=== PATIENT | female | born 1965 | race Caucasian/White ===

== ENCOUNTER 2017-06-30 10:20 | Emergency (ER) | payer SELFPAY ==
[~2017-06-30] VITALS: Ht 157.5 cm; Wt 62.0 kg
[~2017-06-30 10:20] MED LIST: LORTAB5 OR; MS CONTIN15 MG OR; NAPROSYN500 MG OR; NO CURRENT MEDS; NO HOME MEDS; PERCOCET 5/325M1 TAB OR; ULTRAM50 MG OR; ZOFRAN ODT4 MG OR
[2017-06-30 12:07] LABS: ALBUMIN 4.8 g/dL (3.2-5.0); ALKALINE PHOSPHATASE 125 u/l (38-126); ANION GAP 17 (6-22 (CALC)); BUN 15 mg/dL (7-17); BUN/CREATININE RATIO 26 (12-20 (CALC)); CARBON DIOXIDE 26 mmol/l (22-30); CHLORIDE 104 mmol/l (95-108); CREATININE 0.6 mg/dL (0.5-1.0); GFR > 60 ML/MIN (>=60 (CALC)); GFR FOR AFR.AMER. > 60 ML/MIN (>=60 (CALC)); LIPASE 70 u/l (23-300); POTASSIUM 4.9 mmol/l (3.5-5.1); SGOT/AST 44 u/l (14-36); SGPT/ALT 47 u/l (9-52); SODIUM 142 mmol/l (137-146); TOTAL PROTEIN 8.6 g/dL (6.3-8.2)
[2017-06-30 12:19] LABS: MYOGLOBIN 17 ng/mL (0 - 62)
[2017-06-30] MEDS ORDERED: PREDNISONE50 MG PO ×2 (12:36→12:41)
[2017-06-30] MEDS ORDERED: TESSALON PER100 MG PO ×2 (12:36→12:41)
[2017-06-30] MEDS ORDERED: ZITHROMAX250 MG PO ×2 (12:36→12:41)
[2017-06-30 12:45] VITALS: BP 142/88
== END 2017-06-30 12:45 | disposition home or self-care (01) | DRG 203 ==
LOC: ED 10:20
PROVIDERS: Emergency Medicine
DX: J40 Bronchitis, not specified as acute or chronic (principal); F17.210 Nicotine dependence, cigarettes, uncomplicated; R05 Cough; R11.2 Nausea with vomiting, unspecified

== ENCOUNTER 2017-07-06 19:42 | Emergency (ER) | payer SELFPAY ==
[~2017-07-06] VITALS: Ht 157.5 cm; Wt 59.0 kg
[~2017-07-06 19:42] MED LIST changes: +PREDNISONE50 MG PO; +TESSALON PER100 MG PO; +ZITHROMAX250 MG PO
[2017-07-06 20:54] VITALS: BP 122/78
== END 2017-07-06 20:54 | disposition home or self-care (01) | DRG 605 ==
LOC: ED 19:42
PROC: 0HQKXZZ Repair Right Lower Leg Skin, External Approach (ICD-10-PCS; principal; 2017-07-06)
DX: S81.811A Laceration without foreign body, right lower leg, initial encounter (principal); F17.210 Nicotine dependence, cigarettes, uncomplicated; X99.1XXA Assault by knife, initial encounter

== ENCOUNTER 2017-08-24 05:28 | Observation (INO) | payer SELFPAY ==
[~2017-08-24] VITALS: Ht 157.5 cm; Wt 59.6 kg
[2017-08-24] VITALS (7 sets, daily range): BP systolic 134–166; BP diastolic 70–101
--- NOTE | 2017-08-24 05:43 | NUR ---
BROUGHT BY W/C TO ROOM 10. GENERALIZED TREMORS.
--- NOTE | 2017-08-24 05:44 | NUR ---
PT. TO ROOM 10 WITH AND C/O NOT HAVING ENOUGH TO DRINK TODAY AND PT. STATING, " I FEEL BUGS CRAWLING ALL OVER ME." " JUST PLEASE GIVE ME A DRINK." MD AT BEDSIDE.
--- NOTE | 2017-08-24 06:37 | NUR ---
IV FLUIDS AND IV ATIVAN GIVEN PER MD ORDER.
[2017-08-24 06:38] LABS: URINE BILIRUBIN - DIPSTICK NEGATIVE (NEGATIVE); URINE BLOOD DIPSTICK TRACE-INTACT (NEGATIVE); URINE COLOR YELLOW; URINE GLUCOSE - DIPSTICK NEGATIVE (NEGATIVE); URINE KETONE NEGATIVE (NEGATIVE); URINE LEUK ESTERASE NEGATIVE (NEGATIVE); URINE NITRITE - DIPSTICK NEGATIVE (Negative); URINE PROTEIN - DIPSTICK NEGATIVE (NEG-TRACE); URINE SPECIFIC GRAVITY 1.015; URINE UROBILINOGEN - DIPSTICK 0.2 E.U./dL (0.2)
[2017-08-24 06:39] LABS: HEMATOCRIT 44.6 % (37.0-47.0); IMMATURE GRANULOCYTES 0.2 % (0.0-1.0); MEAN CELL VOLUME 101.6 fL CALC (80.0-100.0); MEAN CORPUSCULAR HGB 34.2 pG CALC (26.0-32.0); MEAN CORPUSCULAR HGB CONC 33.6 g/L CALC (32.0-36.0); NEUT# 5.31 thou/uL (2.00-7.15); RED BLOOD COUNT 4.39 mill/uL (4.20-5.60); RED CELL DISTRI WIDTH 13.4 % (11.5-15.5); URINE CLARITY CLEAR
[2017-08-24 06:43] LABS: BARBITURATES NEGATIVE (NEGATIVE); COCAINE NEGATIVE (NEGATIVE); METHADONE NEGATIVE (NEGATIVE); OXCYCODONE NEGATIVE (NEGATIVE); TETRAHYDROCANNABIONOL NEGATIVE (NEGATIVE); TRICYLIC ANTIDEPRESSANTS NEGATIVE (NEGATIVE)
--- NOTE | 2017-08-24 06:49 | NUR ---
REPORT GIVEN TO STANISLAW FRANCIS/
[2017-08-24 06:54] LABS: ALBUMIN 4.6 g/dL (3.2-5.0); ALKALINE PHOSPHATASE 135 u/l (38-126); ANION GAP 24 (6-22 (CALC)); BILIRUBIN, TOTAL 0.5 mg/dL (0.0-1.4); BUN 16 mg/dL (7-17); BUN/CREATININE RATIO 25 (12-20 (CALC)); CARBON DIOXIDE 24 mmol/l (22-30); CHLORIDE 107 mmol/l (95-108); CREATININE 0.7 mg/dL (0.5-1.0); ETHYL ALCOHOL 247 mg/dl (0-30); GFR > 60 ML/MIN (>=60 (CALC)); GFR FOR AFR.AMER. > 60 ML/MIN (>=60 (CALC)); LIPASE 296 u/l (23-300); POTASSIUM 4.2 mmol/l (3.5-5.1); PROTHROMBIN TIME 10.6 SECONDS (9.0-12.5); SGPT/ALT 70 u/l (9-52)
[2017-08-24 06:55] LABS: SGOT/AST 90 u/l (14-36); SODIUM 151 mmol/l (137-146)
[2017-08-24 07:05] LABS: MYOGLOBIN 32 ng/mL (0 - 62)
--- NOTE | 2017-08-24 07:07 | NUR ---
PATIENT RETURNS FROM RADIOLOGY IN STABLE CONDITION, ALERT AND ORIENTED. RESPIRATIONS ARE EVEN AND UNLABORED. IV FLUIDS INFUSING WELL. REQUESTING PO FLUIDS. INFORMED OF NPO STATUS UNTIL CT SCAN RESULTS RETURN. VERBAL UNDERSTANDING. AT BEDSIDE, CALL LIGHT GIVEN. INFORMED TO CALL FOR ASSISTANCE, VERBAL UNDERSTANDING. WILL CONTINUE TO MONITOR.
--- NOTE | 2017-08-24 08:05 | NUR ---
PATIENT RESTING ON STRETCHER WITH NO SIGNS OF DISTRESS. UPDATED ON PLAN OF CARE VERBAL UNDERSTANDING, WILL CONTINUE TO MONITOR.
--- NOTE | 2017-08-24 08:21 | NUR ---
CALL PLACED TO [facility], SPOKE TO JOHANNY. STATES NURSE IN A ROOM, WILL CALL BACK.
--- NOTE | 2017-08-24 09:08 | NUR ---
PATIENT TRANSPORTED TO [facility] WITH TELE VIA STRETCHER. BEDSIDE REPORT GIVEN TO PENNY CYR. CARE RELINQUISHED.
--- NOTE | 2017-08-24 09:09 | NUR ---
PT CAME FROM ER VIA STRETCHER BY PENNY DOVER. STAND BY ASSIST TO SCALE THEN TO BED. ORIENTED PT TO CALL LIGHT AND SAFETY PRECAUTIONS REINFORCED. CALL LIGHT IN REACH.
--- NOTE | 2017-08-24 09:33 | NUR ---
CALLED DR. CARDOSO RE: PT HAVING JITTERS AND ANXIETY. ORDERS RECEIVED.
--- NOTE | 2017-08-24 09:51 | NUR ---
PT HAS JITTERS MEDICATED PT WITH ATIVAN SEE EMAR.
--- NOTE | 2017-08-24 10:00 | NUR ---
ASSESSMENT DONE AND TELE IN PLACE. RESPS EVEN AND UNLABORED. PT DENIES PAIN AT THIS TIME. #20 RFA THAT APPEARS HEALTHY. PT HAS A BLISTER ON HER LEFT FOOT PINKY. PT DENIES NEEDS AT THIS TIME. CALL LIGHT IN REACH.
--- NOTE | 2017-08-24 12:00 | NUR ---
GAVE PT A COOL WASHCLOTH FOR HEAD FOR COMFORT. PT STATED THAT SHE IS GOING TO TRY TO REST. PT DENIES ANY OTHER NEEDS AT THIS TIME. CALL LIGHT IN REACH.
--- NOTE | 2017-08-24 14:26 | NUR ---
PT AMBUTALTING SLOW STEADY GAIT IN THE HALLWAY HOLDING TO IV POLE AND AT SIDE.
--- NOTE | 2017-08-24 14:30 | NUR ---
WAS NOTIFIED THAT PT WENT DOWN TO FIRST FLOOR WITHOUT ASKING. PT TOOK IV POLE WITH HER. IS WITH PT. SECURITY IS GOING TO BRING PT BACK TO UNIT.
--- NOTE | 2017-08-24 14:36 | NUR ---
PT BACK TO UNIT EXPLAIN TO PT AND . THE IMPORTANCES OF PT STAYING IN THE UNIT. PT VERBALIZED UNDERSTANDING.
--- NOTE | 2017-08-24 16:00 | NUR ---
PT IS RESTING ON HER LEFT SIDE IN BED WITH MILD JITTERS. PT DENIES NEEDS AT THIS TIME. CALL LIGHT IN REACH.
--- NOTE | 2017-08-24 19:30 | NUR ---
REPORT RECIEVED; PT RESTING IN BED WITH FAMILY AT BEDSIDE. RESP EVEN AND UNLABORED. LUNGS CLEAR/DIMINISHED BILAT. TELE IN PLACE. ABD SOFT; ACTIVE BOWEL SOUNDS NOTED. PEDAL PULSES PALPATED BILAT. LEFT PINK TOE BLISTER NOTED; NO OPEN AREAS. IV PATENT RFA; NO REDNESS OR EDEMA NOTED. TREMORS NOTED. FREQUENT ROUNDS MADE. SAFETY PRECAUTIONS REINFORCED. SEIZURE PRECAUTIONS IN PLACE. CALL LIGHT WITHIN REACH.
--- NOTE | 2017-08-24 22:56 | NUR ---
BP:161/101 HR:125, ATIVAN 1MG GIVEN PER PRN ORDERS. SATURATOR NOTIFIED DUE TO ISSUE OF SCANNING MED. FREQUENT ROUNDS MADE. CALL LIGHT WITHIN REACH.
[2017-08-25] VITALS (7 sets, daily range): BP systolic 128–157; BP diastolic 70–97
--- NOTE | 2017-08-25 00:25 | NUR ---
PT X1 ASSIST TO BATHROOM. RESP EVEN AND UNLABORED, TELE IN PLACE. PT DENIES ANY PAIN. PT ASSISTED BACK TO BED. BED ALARM IN PLACE FOR SAFETY, PT ENCOURAGED TO CALL FOR ASSISTANCE. NO TREMORS NOTED. CALL LIGHT WITHIN REACH.
--- NOTE | 2017-08-25 03:53 | NUR ---
RESP EVEN AND UNLABORED; NO DISTRESS NOTED. TELE IN PLACE. IV PATENT; NO REDNESS OR EDEMA NOTED. CALL LIGHT WITHIN REACH.
--- NOTE | 2017-08-25 06:00 | NUR ---
PHLEBOTOMY DIRECTOR NOTIFIED OF PT SMOKING IN THE BATHROOM. PT ASSISTED BACK TO BED. PT DENIES ANY PAIN OR DISCOMFORT. IV PATENT; NO REDNESS OR EDEMA. BED ALARM PUT BACK ON PT. PT ENCOURAGED TO USE CALL BARNES FOR NEEDS.
--- NOTE | 2017-08-25 06:10 | NUR ---
WAS CALLED TO UNIT BY Keyla RUIZ LPN, WHO INFORMED ME THAT PATIENT WAS FOUND SMOKING IN THE BATHROOM. I APPROACHED TO PATIENT, INTRODUCED MYSELF AND SHE STATED THAT SHE HAD DONE A DUMB THING AND SHE WAS SORRY. PATIENT WILLINGLY SURRENDERED HER CIGARETTES AND ELECTRIC POWER LINE EXAMINER TO ME, WHICH WERE PLACED IN A LABELLED BAG IN THE MED ROOM, AND SHE REQUESTED NICOTINE REPLACEMENT THERAPY. PRIMARY NURSE WAS SO INFORMED AND WILL REPORT TO MD. PATIENT REMAINED PLEASANT AND CO-OPERATIVE THROUGHOUT ENCOUNTER.
--- NOTE | 2017-08-25 07:20 | NUR ---
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
--- NOTE | 2017-08-25 08:25 | NUR ---
PT RESTING IN SEMI FOWLERS POSITION;ASSESSMENT COMPLETED;RESPIRATIONS EVEN AND UNLABORED ON RA,CLEAR LUNG SOUNDS NOTED;ABDOMEN SOFT ON PALPATION AND ACTIVE IN ALL 4 QUADRANTS;STRONG PEDAL PULSES;SLIGHT TREMORS NOTED,PT REPORTS THAT SHE DECIDED TO QUIT DRINKING ON HER OWN "I NEEDED TO STOP BECAUSE IT WAS TIME";PRN LIBRIUM 25MG PO ADMINISTERED AT THIS TIME;NICOTINE PATCH APPLIED TO RIGHT SHOULDER;BLISTER NOTED TO LEFT FOOT,SKIN INTACT;TELE MONITOR IN PLACE;#20G TO RIGHT FOREARM INFUSING D5 1/2NS @ 125ML/HR,SITE APPEARS HEALTHY;SEIZURE PRECAUTIONS REMAIN IN PLACE;FRESH ICE PROVIDED PER REQUEST;ENCOURAGED TO CALL FOR ASSISTANCE IF NEEDED;CALL LIGHT IN REACH;WILL CONTINUE TO MONITOR
[2017-08-25 09:50] LABS: BILIRUBIN, TOTAL 0.8 mg/dL (0.0-1.4); MAGNESIUM 1.8 mg/dL (1.6-2.3)
[2017-08-25 09:51] LABS: ALBUMIN 3.3 g/dL (3.2-5.0); TOTAL PROTEIN 6.7 g/dL (6.3-8.2)
--- NOTE | 2017-08-25 10:50 | NUR ---
PT COMPLAINS OF RIGHT UPPER QUADRANT ABDOMINAL ACHING RATING 7/10 ON THE PAIN SCALE;BEREKET EVANS,ANRP NOTIFIED AND NEW ORDERS RECEIVED
--- NOTE | 2017-08-25 11:10 | NUR ---
PT MEDICATED WITH PRN MOTRIN 400MG PO FOR ABDOMINAL PAIN RATING 7/10 ON THE PAIN SCALE,WILL MONITOR FOR EFFECTIVENESS
--- NOTE | 2017-08-25 13:10 | NUR ---
PT COMPLAINS OF ABDOMINAL PAIN TO RIGHT UPPER QUADRANT RATING 9/10 ON THE PAIN SCALE;PT MEDICATED WITH PRN MORPHINE 2MG IVP;RESPIRATIONS EVEN AND UNLABORED ON RA;#20G TO RIGHT FOREARM INFUSING WELL,SITE HEALTHY;SEIZURE PRECAUTIONS IN PLACE;ENCOURAGED TO CALL FOR ASSISTANCE IF NEEDED;WILL CONTINUE TO MONITOR
--- NOTE | 2017-08-25 15:10 | NUR ---
PT MEDICATED WITH LORTAB 5/325MG 1 COMBO FOR ABDOMINAL PAIN RATING 9/10 ON THE PAIN SCALE,WILL MONITOR FOR EFFECT
[2017-08-25 15:19] LABS: IMMATURE GRANULOCYTES 0.4 % (0.0-1.0); MEAN CELL VOLUME 103.2 fL CALC (80.0-100.0); MEAN CORPUSCULAR HGB 34.6 pG CALC (26.0-32.0); MEAN CORPUSCULAR HGB CONC 33.5 g/L CALC (32.0-36.0); NEUT# 4.14 thou/uL (2.00-7.15); RED BLOOD COUNT 3.7 mill/uL (4.20-5.60); RED CELL DISTRI WIDTH 12.8 % (11.5-15.5)
[2017-08-25 15:20] LABS: HEMATOCRIT 38.2 % (37.0-47.0); HEMOGLOBIN 12.8 g/dl (12.0-16.0)
[2017-08-25 15:35] LABS: BUN 11 mg/dL (7-17); BUN/CREATININE RATIO 20 (12-20 (CALC)); CARBON DIOXIDE 25 mmol/l (22-30); CHLORIDE 106 mmol/l (95-108); CREATININE 0.6 mg/dL (0.5-1.0); GFR > 60 ML/MIN (>=60 (CALC)); GFR FOR AFR.AMER. > 60 ML/MIN (>=60 (CALC))
[2017-08-25 15:38] LABS: ANION GAP 13 (6-22 (CALC)); SODIUM 140 mmol/l (137-146)
--- NOTE | 2017-08-25 18:30 | NUR ---
PT OUT OF SHOWER REQUESTING TO LEAVE AMA AND CRYING;PT STATES "I WANNA LEAVE I DONT CARE";PT THEN REPORTS THE NEED/WANT FOR A CIGARETTE AND THAT SHE WOULD STAY IF SHE WAS JUST ABLE TO GO DOWNSTAIRS;SHAWN PALMA NOTIFIED AND ORDER TO ALLOW PT TO WALK DOWN EVERY 2-3 HOURS SUPERVISED APPROVED;RELEASE FORM SIGNED AND PLACED IN CHART;IV SITE PATENT WITH TELE MONITOR IN PLACE;WILL CONTINUE TO MONITOR
--- NOTE | 2017-08-25 20:19 | NUR ---
REPORT RECIEVED; PT RESTING IN SEMI-FOWLERS POSITION IN BED. PT DENIES PAIN OR DISCOMFORT. RESP EVEN AND UNLABORED. LUNGS CLEAR/ DIMINISHED BILAT. TELE IN PLACE. ABD SOFT; ACTIVE BOWEL SOUNDS NOTED. PEDAL PULSES PALPATED BILAT. IV RFA PATENT; NO REDNESS OR EDEMA NOTED. SAFETY PRECAUTIONS REINFORCED. PT ENCOURAGED TO CALL FOR ASSISTANCE. FREQUENT ROUNDS MADE. CALL LIGHT WITHIN REACH.
--- NOTE | 2017-08-26 00:06 | NUR ---
RESP EVEN AND UNLABORED; MO DISTRESS NOTED. TELE IN PLACE. IV PATENT; NO EDEMA OR REDNESS NOTED. FAMILY AT BEDSIDE. CALL LIGHT WITHIN REACH.
[2017-08-26 00:17] VITALS: BP 119/84
[2017-08-26 01:23] LABS: URINE BILIRUBIN - DIPSTICK NEGATIVE (NEGATIVE); URINE BLOOD DIPSTICK LARGE (NEGATIVE); URINE COLOR YELLOW; URINE GLUCOSE - DIPSTICK NEGATIVE (NEGATIVE); URINE KETONE NEGATIVE (NEGATIVE); URINE LEUK ESTERASE MODERATE (Negative); URINE NITRITE - DIPSTICK NEGATIVE (Negative); URINE PH 6.5 (4.5-8.0); URINE PROTEIN - DIPSTICK NEGATIVE (NEG-TRACE); URINE SPECIFIC GRAVITY <=1.005; URINE UROBILINOGEN - DIPSTICK 0.2 E.U./dL (0.2)
[2017-08-26 01:47] LABS: URINE CLARITY HAZY; URINE RBC 0-2 RBC/hpf (0-5)
[2017-08-26 01:48] LABS: URINE BACTERIA MANY hpf
--- NOTE | 2017-08-26 04:10 | NUR ---
ASSESSMENT UNCHANGED; RESP EVEN AND UNLABORED.TELE IN PLACE. IV PATENT; NO REDNESS OR EDEMA NOTED. CALL LIGHT WITHIN REACH.
[2017-08-26 04:32] VITALS: BP 140/98
--- NOTE | 2017-08-26 05:00 | NUR ---
PT OFF UNIT WITH STAFF.
[2017-08-26 05:10] LABS: HEMATOCRIT 37.7 % (37.0-47.0); HEMOGLOBIN 12.3 g/dl (12.0-16.0); IMMATURE GRANULOCYTES 0.3 % (0.0-1.0); MEAN CELL VOLUME 107.4 fL CALC (80.0-100.0); MEAN CORPUSCULAR HGB CONC 32.6 g/L CALC (32.0-36.0); NEUT# 3.79 thou/uL (2.00-7.15); RED BLOOD COUNT 3.51 mill/uL (4.20-5.60); RED CELL DISTRI WIDTH 12.8 % (11.5-15.5)
--- NOTE | 2017-08-26 05:10 | NUR ---
PT BACK ON FLOOR WITH STAFF.
[2017-08-26 05:38] LABS: ANION GAP 16 (6-22 (CALC)); BUN 13 mg/dL (7-17); BUN/CREATININE RATIO 20 (12-20 (CALC)); CARBON DIOXIDE 19 mmol/l (22-30); CHLORIDE 108 mmol/l (95-108); CREATININE 0.6 mg/dL (0.5-1.0); GFR > 60 ML/MIN (>=60 (CALC)); GFR FOR AFR.AMER. > 60 ML/MIN (>=60 (CALC)); SODIUM 139 mmol/l (137-146)
--- NOTE | 2017-08-26 07:25 | NUR ---
REPORT RECEIVED FROM RIK LOGAN;PT APPEARS TO BE SLEEPING IN SUPINE POSITION;NO S/S OF DISTRESS NOTED;RESPIRATIONS APPEAR EVEN AND UNLABORED ON RA;IV SITE PATENT;SEIZURE PRECAUTIONS AND CONTACT PRECAUTIONS IN PLACE;WILL CONTINUE TO MONITOR
[2017-08-26 08:15] VITALS: BP 140/86
--- NOTE | 2017-08-26 08:50 | NUR ---
PT RESTING IN SUPINE POSITION;VS OBTAINED AND ASSESSMENT COMPLETED;RESPIRATIONS EVEN AND UNLABORED ON RA,CLEAR LUNG SOUNDS NOTED;ABDOMEN SOFT ON PALPATION WITH 4 ACTIVE BOWEL SOUNDS;STRONG PEDAL PULSES;TELE MONITOR IN PLACE;SKIN INTACT;#20G TO RIGHT FOREARM INFUSING D5 1/2 NS @ 125ML/HR,SITE APPEARS HEALTHY;PT REQUESTS TO GO DOWN STAIRS AND SMOKE,PT INFORMED THAT SHE WOULD BE ALLOWED TO GO DOWNSTRAIRS ONCE A STAFF MEMBER IS FREE TO TAKE HER DOWN;CONTACT PRECAUTIONS IN PLACE FOR MRSA;WILL CONTINUE TO MONITOR
--- NOTE | 2017-08-26 10:35 | NUR ---
PT MEDICATED WITH PRN LORTAB 5/325MG 1 COMBO PO FOR RIGHT UPPER QUAD ABDOMINAL PAIN RATING 7/10 ON THE PAIN SCALE,WILL MONITOR FOR EFFECT
[2017-08-26 11:23] VITALS: BP 135/92
--- NOTE | 2017-08-26 11:50 | NUR ---
PT RESTING IN BED WATCHING TV;DENIES ANY NEEDS AT THIS TIME;TELE MONITOR IN PLACE;IV SITE PATENT INFUSING D5 1/2 NS @ 125ML/HR;SEIZURE AND CONTACT PRECAUTIONS;RESPIRATIONS EVEN AND UNLABORED ON RA;WILL CONTINUE TO MONITOR
[2017-08-26] MEDS ORDERED: PANTOPRAZOLE SO40 M1 PO (12:24)
[2017-08-26] MEDS ORDERED: LIBRIUM25 M1 PO (12:24)
[2017-08-26] MEDS ORDERED: TRAMADOL HCL50 MG PO (13:29)
--- NOTE | 2017-08-26 14:00 | NUR ---
SHMUELITTER AND PT DISCUSSED D/C;ALL QUESTIONS ANSWERED AT THIS TIME;IV SITE REMOVED WITH CATHETER INTACT;AWAITING [facility] TO ARRIVE
--- NOTE | 2017-08-26 14:05 | NUR ---
Discharge instructions given. Patient verbalizes understanding of same. Discharged in stable condition via Ambulatory to Home with . All belongings sent with pt.
== END 2017-08-26 14:08 | disposition home or self-care (01) | DRG 897 ==
LOC: ED 05:28 → ED-I 07:33 → ED 07:43 → MS2 07:44
PROVIDERS: Emergency Medicine; Nurse Practitioner Family; ADMIT Internal Medicine; ATTEND Internal Medicine
DX: F10.231 Alcohol dependence with withdrawal delirium (principal); K92.0 Hematemesis; F17.210 Nicotine dependence, cigarettes, uncomplicated; F41.9 Anxiety disorder, unspecified; G89.29 Other chronic pain; M54.9 Dorsalgia, unspecified; B19.20 Unspecified viral hepatitis C without hepatic coma; R10.11 Right upper quadrant pain; F15.10 Other stimulant abuse, uncomplicated; E86.0 Dehydration; I10 Essential (primary) hypertension; Z87.442 Personal history of urinary calculi
CPT/HCPCS: G0378; J2060

== ENCOUNTER 2017-10-05 15:12 | Emergency (ER) | payer SELFPAY ==
[~2017-10-05] VITALS: Ht 157.5 cm; Wt 68.0 kg
[~2017-10-05 15:12] MED LIST changes: +LIBRIUM25 M1 PO; +PANTOPRAZOLE SO40 M1 PO; +TRAMADOL HCL50 MG PO
[2017-10-05 15:58] LABS: IMMATURE GRANULOCYTES 0.7 % (0.0-1.0); MEAN CELL VOLUME 106.4 fL CALC (80.0-100.0); MEAN CORPUSCULAR HGB 35.6 pG CALC (26.0-32.0); MEAN CORPUSCULAR HGB CONC 33.5 g/L CALC (32.0-36.0); NEUT# 3.52 thou/uL (2.00-7.15); RED BLOOD COUNT 4.35 mill/uL (4.20-5.60); RED CELL DISTRI WIDTH 13.8 % (11.5-15.5)
[2017-10-05 16:05] LABS: HEMATOCRIT 46.3 % (37.0-47.0); HEMOGLOBIN 15.5 g/dl (12.0-16.0)
[2017-10-05] MEDS ORDERED: XANAX0.5 MG PO (16:18)
[2017-10-05 16:19] LABS: ALKALINE PHOSPHATASE 125 u/l (38-126); BILIRUBIN, TOTAL 0.4 mg/dL (0.0-1.4); BUN 18 mg/dL (7-17); BUN/CREATININE RATIO 30 (12-20 (CALC)); CARBON DIOXIDE 23 mmol/l (22-30); CHLORIDE 107 mmol/l (95-108); CREATININE 0.6 mg/dL (0.5-1.0); GFR > 60 ML/MIN (>=60 (CALC)); GFR FOR AFR.AMER. > 60 ML/MIN (>=60 (CALC)); POTASSIUM 4.4 mmol/l (3.5-5.1); SGOT/AST 67 u/l (14-36); SGPT/ALT 64 u/l (9-52)
[2017-10-05] MEDS ORDERED: ESTRACE2 M1 PO (16:25)
[2017-10-05] MEDS ORDERED: HYDROCHLOROT25 MG PO (16:26)
[2017-10-05] MEDS ORDERED: LOSARTAN POTASS50 MG PO (16:26)
[2017-10-05] MEDS ORDERED: AMLODIPINE5 MG PO (16:27)
[2017-10-05 16:35] LABS: ALBUMIN 4.7 g/dL (3.2-5.0); ANION GAP 23 (6-22 (CALC)); SODIUM 149 mmol/l (137-146); TOTAL PROTEIN 9.3 g/dL (6.3-8.2)
[2017-10-05 16:36] LABS: ETHYL ALCOHOL 382 mg/dl (0-30)
[2017-10-05 18:10] LABS: URINE BILIRUBIN - DIPSTICK NEGATIVE (NEGATIVE); URINE BLOOD DIPSTICK NEGATIVE (NEGATIVE); URINE COLOR YELLOW; URINE GLUCOSE - DIPSTICK NEGATIVE (NEGATIVE); URINE KETONE NEGATIVE (NEGATIVE); URINE LEUK ESTERASE NEGATIVE (NEGATIVE); URINE NITRITE - DIPSTICK NEGATIVE (Negative); URINE PH 5.5 (4.5-8.0); URINE PROTEIN - DIPSTICK NEGATIVE (NEG-TRACE); URINE UROBILINOGEN - DIPSTICK 0.2 E.U./dL (0.2)
[2017-10-05 18:13] LABS: URINE CLARITY CLEAR
[2017-10-05 18:14] LABS: BARBITURATES NEGATIVE (NEGATIVE); COCAINE NEGATIVE (NEGATIVE); METHADONE NEGATIVE (NEGATIVE); OXCYCODONE NEGATIVE (NEGATIVE); TETRAHYDROCANNABIONOL NEGATIVE (NEGATIVE); TRICYLIC ANTIDEPRESSANTS NEGATIVE (NEGATIVE)
[2017-10-05 23:58] VITALS: BP 120/72
== END 2017-10-05 23:56 | disposition designated cancer center or children's hospital (05) | DRG 880 ==
LOC: ED 15:12
PROVIDERS: Family Medicine
PROC: 0T9B70Z Drainage of Bladder with Drainage Device, Via Natural or Artificial Opening (ICD-10-PCS; principal; 2017-10-05)
DX: R45.851 Suicidal ideations (principal); F10.120 Alcohol abuse with intoxication, uncomplicated; Y90.8 Blood alcohol level of 240 mg/100 ml or more; F17.210 Nicotine dependence, cigarettes, uncomplicated
CPT/HCPCS: J2060

== ENCOUNTER 2017-10-07 21:10 | Emergency (ER) | payer SELFPAY ==
[~2017-10-07] VITALS: Ht 157.5 cm; Wt 65.9 kg
[~2017-10-07 21:10] MED LIST changes: +AMLODIPINE5 MG PO; +ESTRACE2 M1 PO; +HYDROCHLOROT25 MG PO; +LOSARTAN POTASS50 MG PO; +XANAX0.5 MG PO
[2017-10-07 22:18] LABS: BARBITURATES NEGATIVE (NEGATIVE); COCAINE NEGATIVE (NEGATIVE); METHADONE NEGATIVE (NEGATIVE); OXCYCODONE NEGATIVE (NEGATIVE); TETRAHYDROCANNABIONOL NEGATIVE (NEGATIVE); TRICYLIC ANTIDEPRESSANTS NEGATIVE (NEGATIVE)
[2017-10-07 22:44] LABS: HEMATOCRIT 41.9 % (37.0-47.0); HEMOGLOBIN 14.2 g/dl (12.0-16.0); IMMATURE GRANULOCYTES 0.3 % (0.0-1.0); MEAN CELL VOLUME 104.8 fL CALC (80.0-100.0); MEAN CORPUSCULAR HGB 35.5 pG CALC (26.0-32.0); MEAN CORPUSCULAR HGB CONC 33.9 g/L CALC (32.0-36.0); NEUT# 3.91 thou/uL (2.00-7.15); RED CELL DISTRI WIDTH 13.3 % (11.5-15.5)
[2017-10-07 23:00] LABS: URINE BILIRUBIN - DIPSTICK NEGATIVE (NEGATIVE); URINE BLOOD DIPSTICK NEGATIVE (NEGATIVE); URINE COLOR YELLOW; URINE GLUCOSE - DIPSTICK NEGATIVE (NEGATIVE); URINE KETONE NEGATIVE (NEGATIVE); URINE LEUK ESTERASE TRACE (NEGATIVE); URINE NITRITE - DIPSTICK NEGATIVE (Negative); URINE PH 6.5 (4.5-8.0); URINE PROTEIN - DIPSTICK NEGATIVE (NEG-TRACE); URINE SPECIFIC GRAVITY <=1.005; URINE UROBILINOGEN - DIPSTICK 0.2 E.U./dL (0.2)
[2017-10-07 23:01] LABS: URINE CLARITY SL CLOUDY
[2017-10-07 23:03] LABS: ALBUMIN 4.2 g/dL (3.2-5.0); ALKALINE PHOSPHATASE 135 u/l (38-126); ANION GAP 19 (6-22 (CALC)); BILIRUBIN, TOTAL 0.5 mg/dL (0.0-1.4); BUN 13 mg/dL (7-17); BUN/CREATININE RATIO 19 (12-20 (CALC)); CARBON DIOXIDE 22 mmol/l (22-30); CHLORIDE 108 mmol/l (95-108); CREATININE 0.7 mg/dL (0.5-1.0); GFR > 60 ML/MIN (>=60 (CALC)); GFR FOR AFR.AMER. > 60 ML/MIN (>=60 (CALC)); MAGNESIUM 1.8 mg/dL (1.6-2.3); SGOT/AST 68 u/l (14-36); SGPT/ALT 70 u/l (9-52); SODIUM 145 mmol/l (137-146); TOTAL PROTEIN 8.3 g/dL (6.3-8.2)
[2017-10-07 23:04] LABS: ETHYL ALCOHOL < 10 mg/dl (0-30); POTASSIUM 3.5 mmol/l (3.5-5.1)
[2017-10-08 04:17] VITALS: BP 99/68
== END 2017-10-08 04:17 | DRG 951 ==
LOC: ED 21:10
PROVIDERS: Emergency Medicine
DX: R46.89 Other symptoms and signs involving appearance and behavior (principal); R07.9 Chest pain, unspecified; R41.82 Altered mental status, unspecified; T51.2X4A Toxic effect of 2-Propanol, undetermined, initial encounter; Y92.009 Unspecified place in unspecified non-institutional (private) residence as the place of occurrence of the external cause
CPT/HCPCS: S0166

== ENCOUNTER 2019-11-11 22:23 | Emergency (ER) | payer SELFPAY ==
[~2019-11-11] VITALS: Ht 157.5 cm; Wt 68.1 kg
[~2019-11-11 22:23] MED LIST changes: +ASPERCREME LIDOCA41 EN; +DOXYCYC MONO100 M2 PO
[2019-11-11 22:30] VITALS: BP 144/82
[2019-11-11 23:32] LABS: IMMATURE GRANULOCYTES 0.6 % (0.0-5.0); MEAN CELL VOLUME 104.8 fL CALC (80.0-100.0); MEAN CORPUSCULAR HGB 34.1 pG CALC (26.0-32.0); MEAN CORPUSCULAR HGB CONC 32.5 g/dL CAL (32.0-36.0); NEUT# 5.93 thou/uL (2.00-7.15); RED BLOOD COUNT 4.14 mill/uL (4.20-5.60)
[2019-11-11 23:33] LABS: HEMATOCRIT 43.4 % (37.0-47.0); HEMOGLOBIN 14.1 g/dl (12.0-16.0)
[2019-11-11 23:44] LABS: BILIRUBIN, TOTAL 0.4 mg/dL (0.0-1.4); BUN 22 mg/dL (7-17); BUN/CREATININE RATIO 31 (12-20 (CALC)); CARBON DIOXIDE 19 mmol/l (22-30); CHLORIDE 108 mmol/l (95-108); CREATININE 0.7 mg/dL (0.5-1.0); ETHYL ALCOHOL 117 mg/dl (0-30); GFR > 60 ML/MIN (>=60 (CALC)); GFR FOR AFR.AMER. > 60 ML/MIN (>=60 (CALC)); SODIUM 139 mmol/l (137-146)
[2019-11-11 23:45] LABS: ALBUMIN 4.3 g/dL (3.2-5.0); ALKALINE PHOSPHATASE 130 u/l (38-126); ANION GAP 17 (6-22 (CALC)); POTASSIUM 4.6 mmol/l (3.5-5.1); SGOT/AST 124 u/l (14-36); TOTAL PROTEIN 8.6 g/dL (6.3-8.2)
== END 2019-11-12 00:30 | disposition left against medical advice (07) | DRG 101 ==
LOC: ED 22:23
PROVIDERS: Emergency Medicine
DX: G40.909 Epilepsy, unspecified, not intractable, without status epilepticus (principal); I10 Essential (primary) hypertension; F17.210 Nicotine dependence, cigarettes, uncomplicated; Z91.19 Patient's noncompliance with other medical treatment and regimen
CPT/HCPCS: J2060

== ENCOUNTER 2020-02-18 12:40 | Observation (INO) | payer SELFPAY ==
[~2020-02-18] VITALS: Ht 157.5 cm; Wt 76.0 kg
--- NOTE | 2020-02-18 13:25 | NUR ---
PATIENT TO ROOM VIA EMS AND PHYSICIAN NOTIFIED OF PATIENT STATUS
--- NOTE | 2020-02-18 14:50 | NUR ---
MD AWARE OF HEADACHE, NAUSEA, HTN AND GENERAL ACHINESS, PT ALSO ADMITS TO LOSE OF TASTE AND SMELL SINCE 7 DAYS AGO. PT ASO ADMIST TO BEING EXPOSED TO COVID POSITIVE PT (HER GRANDSON)
[2020-02-18 15:10] LABS: HEMATOCRIT 47.9 % (37.0-47.0); IMMATURE GRANULOCYTES 0.3 % (0.0-5.0); MEAN CORPUSCULAR HGB 33.5 pG CALC (26.0-32.0); NEUT# 2.67 thou/uL (2.00-7.15); RED BLOOD COUNT 4.87 mill/uL (4.20-5.60); RED CELL DISTRI WIDTH 12.6 % (11.5-15.5)
--- NOTE | 2020-02-18 15:15 | NUR ---
PT MEDICATED ORDERED, WILL MONITOR FOR EFFICACY, CALL MOLLY BRAGG EACH
[2020-02-18 15:34] LABS: HEMOGLOBIN 16.3 g/dl (12.0-16.0); MEAN CELL VOLUME 98.4 fL CALC (80.0-100.0)
[2020-02-18 15:39] LABS: ALBUMIN 4.5 g/dL (3.2-5.0); ALKALINE PHOSPHATASE 176 u/l (38-126); BILIRUBIN, TOTAL 0.5 mg/dL (0.0-1.4); BUN 6 mg/dL (7-17); BUN/CREATININE RATIO 10 (12-20 (CALC)); CHLORIDE 100 mmol/l (95-108); CREATININE 0.5 mg/dL (0.5-1.0); GFR > 60 ML/MIN (>=60 (CALC)); GFR FOR AFR.AMER. > 60 ML/MIN (>=60 (CALC)); SGOT/AST 176 u/l (14-36); SODIUM 140 mmol/l (137-146); TOTAL PROTEIN 9.1 g/dL (6.3-8.2)
[2020-02-18 15:43] LABS: C-REACTIVE PROTEIN < 0.5 mg/dL (0-0.9); LIPASE 134 u/l (23-300)
[2020-02-18 15:46] LABS: ANION GAP 17 (6-22 (CALC)); CARBON DIOXIDE 26 mmol/l (22-30); POTASSIUM 3.3 mmol/l (3.5-5.1)
--- NOTE | 2020-02-18 15:54 | NUR ---
HEADCHE, N/V AND B/P ALL MUCH IMPROVED, MD AWARE AND URINE SPECIMEN SENT
[2020-02-18 16:45] LABS: URINE BILIRUBIN - DIPSTICK NEGATIVE (NEGATIVE); URINE BLOOD DIPSTICK NEGATIVE (NEGATIVE); URINE COLOR YELLOW; URINE GLUCOSE - DIPSTICK NEGATIVE (NEGATIVE); URINE KETONE NEGATIVE (NEGATIVE); URINE LEUK ESTERASE NEGATIVE (NEGATIVE); URINE PH 7.5 (4.5-8.0); URINE PROTEIN - DIPSTICK NEGATIVE (NEG-TRACE); URINE UROBILINOGEN - DIPSTICK 0.2 E.U./dL (0.2)
[2020-02-18 16:50] LABS: URINE NITRITE - DIPSTICK POSITIVE (Negative)
[2020-02-18 16:51] LABS: URINE BACTERIA MANY hpf; URINE EPITHELIAL CELLS FEW EPI/hpf (0-FEW)
--- NOTE | 2020-02-18 17:00 | NUR ---
PT RESTING NO NEW COMPALITNS ADMITS TO DRINK 4-6 LARGE ALCOHOLIC BEVERAGES DAILY AND COMPLAINS NOW OF SHAKING AND CONRCERN OF DT'S
--- NOTE | 2020-02-18 18:00 | NUR ---
PT AWARE OF PLANNED ADMISSION AND ROOM DELAY, OFFERS NO NEW COMPLAINTS, CALL BARNES WITHIN REACH
--- NOTE | 2020-02-18 18:35 | NUR ---
PT RESTING NO NEW COMPLAINTS, PLANNED ADMISSION AND PT AWARE SHE WILL BE GOING UP SOON. MEDICATED FOR COMPLAINTS OF SADIE AND AWARE OF URINE BACTERIA AND HYPERTENSION WITH ORDERS REC'D
--- NOTE | 2020-02-18 19:58 | NUR ---
REPORT CALLED TO MARSHA IN ICU
--- NOTE | 2020-02-18 20:30 | NUR ---
PT. TAKEN TO ICU VIA STRETCHER, NO C/O.
[2020-02-18 20:45] VITALS: BP 198/109
[2020-02-18 21:00] VITALS: BP 194/102
--- NOTE | 2020-02-18 21:00 | NUR ---
[id number]- ARRIVED TO THE FLOOR AT 2031 VIA STRETCHER ACCOMPANIED BY ER NURSE AND ORIENTED TO CALL LIGHT, ROOM, AND POC; VERBALIZES UNDERSTANDING. ADMISSION ASSESSMENT COMPLETED. NO RESP. DISTRESS NOTED; PT. REPORTS SOB ON EXERTION AND SPO2 ON RA IS 99%. B/P 198/100 AND HR 107; MEDICATED WITH ORDERED/SCHEDULED COZAAR AND NORVASC; WILL REASSESS. PT. C/O MONTANO AND MEDICATED WITH ORDERED PRN TYLENOL; WILL REASSESS. PT. DENIES USING METHAMPHETAMINES AND IS NOTIFIED OF POSTIVE RESULT IN URINE. PT. ONLY ADMITS TO SMOKING CIGARETTES AND DRINKING FOUR LOKOS DAILY AMITTING TO LAST DRINK PRIOR TO EMS ARRIVING AROUND NOON. PT. UP TO BSC AND VOIDED AT THIS TIME. IV SITE PATENT AND SL, FLUSHES WELL; AWAITING CLOTH SHRINKING SUPERVISOR TO BRING MVI IVF BAG TO HANG. ENCOURAGED TO CALL FOR ANY NEEDS. PT. PROVIDED WITH MEAL AND PO FLUIDS. CALL LIGHT IS IN REACH. WILL CONTINUE TO MONITOR.
--- NOTE | 2020-02-18 21:10 | NUR ---
BECKI Lucero VIEIRA AND NOTIFIED HIM OF PT'S ALLERGY TO PCN IN REGARDS TO CLARIFYING ROCEPHIN; MD TO PLACE NEW ORDER FOR ANTIBIOTIC IN COMPUTER; WILL AWAIT ORDERS.
--- NOTE | 2020-02-18 21:34 | NUR ---
SPOKE WITH [facility], FREEMAN, AND CLARIFIED IF MVI IVF BAG CAN BE HUNG WITH ORDERED CIPRO. PER PHARMACY IT IS OKAY TO HANG TOGETHER.
[2020-02-18 22:00] VITALS: BP 194/102
[2020-02-18 22:35] VITALS: BP 168/85
--- NOTE | 2020-02-18 22:35 | NUR ---
REASSESSED B/P NOW 168/85 WITH HR 112; MEDICATED WITH ORDERED PRN CLONIDINE; WILL REASSESS. DENIES FURTHER NEEDS.
[2020-02-18 23:45] VITALS: BP 142/83
--- NOTE | 2020-02-18 23:45 | NUR ---
VSS. NO DISTRESS NOTED; DENIES NEEDS/PAIN. LIBRIUM GIVEN. CALL LIGHT IS IN REACH.
--- NOTE | 2020-02-19 01:30 | NUR ---
SNACK PROVIDED. DENIES FURTHER NEEDS. TOLERATING DIET WELL WITH NO NAUSEA/VOMITING NOTED.
[2020-02-19 04:00] VITALS: BP 119/75
--- NOTE | 2020-02-19 04:00 | NUR ---
RESTING IN BED WITH EYES CLOSED; NO DISTRESS NOTED;
--- NOTE | 2020-02-19 05:36 | NUR ---
PT. C/O MONTANO AND LEG CRAMPING; PT. ANXIOUS AND MEDICATED WITH ORDERED PRN TYLENOL AND ATIVAN ALONG WITH SCHEDULED LIBRIUM; WILL REASSESS. COMMODE EMPTIED. FRESH WATER AND SODA PROVIDED. CALL LIGHT IS IN REACH.
--- NOTE | 2020-02-19 07:20 | NUR ---
pt resting in bed with eyes closed; no apparent distress noted; easily aroused; pt offers no complaints; assessment completed at this time; pt alert and oriented; denies pain; no n/v noted; resp even and unlabored; lungs clear with faint exp wheezing to bilat bases; skin color wnl; ra; o2 sat 98%; hr reg; strong pulses; no edema noted; bilat luis armando hose intact; sr on the monitor; abd soft with bs present; no bm noted per freelance writer; pt admits to voiding without complication; no urine to inspect at this time; bsc; #20 patent to rfa with ivf infusing without complication; no redness or edema noted at site; plan of care/ meds explained; covid precautions explained; bed in lowest position; call light within reach; will continue to monitor
--- NOTE | 2020-02-19 07:40 | NUR ---
Patient is screened for PT intervention and she has no needs at this time
[2020-02-19 07:49] VITALS: BP 136/90
--- NOTE | 2020-02-19 08:01 | NUR ---
pt awake in bed; no apparent distress noted; pt offers no complaints; iv intact and patent; no redness or edema noted at site; call light within reach; will continue to monitor
--- NOTE | 2020-02-19 08:54 | NUR ---
laboratory administrative director at bedside
--- NOTE | 2020-02-19 09:30 | NUR ---
Dr Peterson present at bedside to assess pt and discuss plan of care
--- NOTE | 2020-02-19 10:05 | NUR ---
awake in bed; no apparent distress noted; pt offers no complaints; iv intact and patent; no redness or edema noted at site; sr on monitor; call light within reach; will continue to monitor
--- NOTE | 2020-02-19 11:45 | NUR ---
pt rehabilitation worker light with reports of feeling anxious; st on monitor; hand tremors noted; medicated with ativan as per orders; iv intact and patent; no redness or edema noted at site; call light within reach; will continue to monitor
[2020-02-19 11:54] LABS: BUN 12 mg/dL (7-17); BUN/CREATININE RATIO 21 (12-20 (CALC)); CARBON DIOXIDE 23 mmol/l (22-30); CHLORIDE 105 mmol/l (95-108); CREATININE 0.6 mg/dL (0.5-1.0); GFR > 60 ML/MIN (>=60 (CALC)); GFR FOR AFR.AMER. > 60 ML/MIN (>=60 (CALC)); SODIUM 135 mmol/l (137-146)
[2020-02-19 11:56] LABS: ANION GAP 11 (6-22 (CALC)); POTASSIUM 4.1 mmol/l (3.5-5.1)
[2020-02-19 12:00] VITALS: BP 153/98
--- NOTE | 2020-02-19 12:30 | NUR ---
pt with complaints of back pain; states it feels like a "kidney stone"; SHAWN Christine notified; orders to be placed; will continue to monitor
[2020-02-19 13:25] VITALS: BP 135/79
--- NOTE | 2020-02-19 13:58 | NUR ---
staff at bedside assisting pt with bath; no apparent distress noted; iv intact and patent; no redness or edema noted at site; call light within reach; will continue to monitor
--- NOTE | 2020-02-19 16:11 | NUR ---
resting in bed with eyes closed; no apparent distress noted; resp even and unlabored; st on monitor; iv intact; call light within reach; will continue to monitor
[2020-02-19 16:40] VITALS: BP 141/75
--- NOTE | 2020-02-19 17:50 | NUR ---
awake in bed eating diner; no apparent distress noted; pt offers no complaints; iv intact and patent; no redness or edema noted at site; st on monitor; pt continues with some complaints of back pain; will medicate when due; call light within reach
[2020-02-19 19:10] VITALS: BP 129/87
--- NOTE | 2020-02-19 19:53 | NUR ---
PT C/O PAIN TO BACK, TORADOL DID NOT HELP. CALL PLACED TO DR VIEIRA, ORDERS RECEIVED.
--- NOTE | 2020-02-19 21:35 | NUR ---
PT C/O NAUSEA, MEDICATED PER JUL.
[2020-02-20] VITALS (7 sets, daily range): BP systolic 110–143; BP diastolic 70–98
--- NOTE | 2020-02-20 00:05 | NUR ---
PT ANXIOUS, C/O 11/25 BACK PAIN. REQUESTED ATIVAN. MEDICATED PER JUL.
--- NOTE | 2020-02-20 03:38 | NUR ---
PT C/O DISCOMFORT TO R ARM IV SITE. NO REDNESS NOTED. IV RATE SLOWED. ATTEMPTED L ARM IV SITE, UNSUCCESSFUL.
--- NOTE | 2020-02-20 05:45 | NUR ---
PT VERY ANXIOUS, WIGGLING FEET UNDER BLANKET, UPSET SHE HASN'T RECEIVED ENOUGH ATIVAN.
--- NOTE | 2020-02-20 05:54 | NUR ---
RAHUL FRANCIS PLACED #22HL TO L FA. REMOVED R FA IV SITE.
--- NOTE | 2020-02-20 07:05 | NUR ---
pt government operations consultant light requesting "toradol"; medication last admin at 0004; pt informed of last dose given and next dose due; offers nbo other complaints; will continue to monitor
--- NOTE | 2020-02-20 08:00 | NUR ---
pt awake standing at the foot of bed yelling through the glass doors; lead technical writer at bedside to assess pt; pt anxious and very agitated; pt with complaints of pain to lower back; pt requested toradol previously and was informed when med will be available to admninister; pt denies n/v at present; resp slighlty labored d/t exertion; lungs clear; skin color wnl; ra; energy scheduler cough noted; hr reg; strong pulses; trace edema noted to ble; sr on monitor; abd soft with bs present; no bm noted per lead technical writer; pt admits to diarrhea throughout the night; pt admits to voiding without complication; no urine to inspect at this time; bsc; #22 patent to rfa with ivf infusing without complication; no redness or edema noted at site; plan of care/ am meds explained; complete linen changes with gown change; pt admits to urinary incont d/t coughing; will continue to monitor
--- NOTE | 2020-02-20 09:55 | NUR ---
Dr Peterson present at bedside to assess pt and discuss plan of care
--- NOTE | 2020-02-20 10:00 | NUR ---
tag and label cutter present at bedside
--- NOTE | 2020-02-20 10:16 | NUR ---
pt resting in bed with eyes closed; no apparent distress noted; resp even and unlabored; iv intact and patent; no redness or edema noted at site; sr on monitor; call light within reach; will continue to monitor
[2020-02-20 10:47] LABS: IMMATURE GRANULOCYTES 0.2 % (0.0-5.0); MEAN CELL VOLUME 102.8 fL CALC (80.0-100.0); MEAN CORPUSCULAR HGB 33.4 pG CALC (26.0-32.0); MEAN CORPUSCULAR HGB CONC 32.5 g/dL CAL (32.0-36.0); NEUT# 2.71 thou/uL (2.00-7.15); RED BLOOD COUNT 3.86 mill/uL (4.20-5.60); RED CELL DISTRI WIDTH 12.9 % (11.5-15.5)
--- NOTE | 2020-02-20 11:02 | NUR ---
call received from uJlia (friend) requesting information about pt; Julia unable to provided passcode; no info provided; commercial lines underwriter to speak with pt
[2020-02-20 11:04] LABS: ALKALINE PHOSPHATASE 88 u/l (38-126); BUN 19 mg/dL (7-17); BUN/CREATININE RATIO 26 (12-20 (CALC)); C-REACTIVE PROTEIN 0.8 mg/dL (0-0.9); CARBON DIOXIDE 21 mmol/l (22-30); CHLORIDE 109 mmol/l (95-108); CREATININE 0.8 mg/dL (0.5-1.0); GFR > 60 ML/MIN (>=60 (CALC)); GFR FOR AFR.AMER. > 60 ML/MIN (>=60 (CALC)); HEMATOCRIT 39.7 % (37.0-47.0); HEMOGLOBIN 12.9 g/dl (12.0-16.0); SGOT/AST 89 u/l (14-36); SODIUM 136 mmol/l (137-146)
[2020-02-20 11:15] LABS: ALBUMIN 3.1 g/dL (3.2-5.0); ANION GAP 11 (6-22 (CALC)); BILIRUBIN, TOTAL 0.9 mg/dL (0.0-1.4); TOTAL PROTEIN 6.4 g/dL (6.3-8.2)
--- NOTE | 2020-02-20 11:20 | NUR ---
display card writer at bedside; display card writer informed pt "Julia" has called for information; pt gives this display card writer permission to only give basic info such as she's here and has covid; pt states if she wants more info have her speak with me; pt given passcode to give to Julia/family; portable phone will be provided for pt to update whomever at her will; will continue to monitor
[2020-02-20 11:24] LABS: POTASSIUM 5.1 mmol/l (3.5-5.1)
--- NOTE | 2020-02-20 11:40 | NUR ---
pt awake sitting on side of bed eating lunch; no apparent distress noted; pt inquires "what is going to do about my back" referring to MD; prn pain meds explained; pt medicated with ultram as per orders; portable phone provided; sr on monitor; additional coke and orange juices provided as per request; call light within reach; will continue to monitor
--- NOTE | 2020-02-20 12:10 | NUR ---
awake in bed; sr on monitor; iv intact and patent; chicken noodle soup provided as per request; will continue to monitor
--- NOTE | 2020-02-20 13:51 | NUR ---
report called to med surg Julian Norris RN
--- NOTE | 2020-02-20 13:59 | NUR ---
pt updated on plan of care/ transfer
--- NOTE | 2020-02-20 14:36 | NUR ---
pt transferred to med surg room 282 via wc accompanied by Lucero Knight RN in stable condition; pt belongings transferred with pt
--- NOTE | 2020-02-20 15:31 | NUR ---
PT ARRIVES TO ROOM 282 VIA WHEELCHAIR FROM ICU, SEEN ALERT AND ORIENTED X 3. PT ASSESSMENT SHOWS CLEAR LUNGS, ABDOMEN BENIGN WITH BM LAST NIGHT, AMBULATORY. PT STATES SHE HAS NOT REGAINED TASTE YET AND HAS HEADACHE. PT PROVIDED MED FOR ANXIETY AND HEADACHE PAIN, WELL SNACK.
--- NOTE | 2020-02-20 16:26 | NUR ---
PT SEEN SITTING UP IN BED USING PHONE, NO DISTRESS, NO COMPLAINTS.
--- NOTE | 2020-02-20 19:02 | NUR ---
REPORT FROM SHINE FRANCIS. PT NOTED SITTING UP IN CHAIR AT BEDSIDE. ALERT AND ORIENTED. NO APPARENT DISTRESS NOTED. RESPIRATIONS EVEN AND UNLABORED. NO CURRENT WANTS OR NEEDS. CALL LIGHT WITHIN REACH. WILL CONTINUE TO MONITOR.
--- NOTE | 2020-02-20 20:46 | NUR ---
PT C/O TOOTH PAIN. PT TEARFUL AND ANXIOUS AT THIS TIME. MEDICATED WITH APAP AND ATIVAN AT THIS TIME. PT DENIES ANY OTHER CURRENT WANTS OR NEEDS. CALL LIGHT WITHIN REACH. WILL CONTINUE TO MONITOR.
--- NOTE | 2020-02-20 22:03 | NUR ---
PT REQUESTING MICROWAVE DINNER, SODA, CUP OF ICE, AND MILK. PROVIDED AT THIS TIME. PT CONTINUE TO C/O TOOTH AND BACK PAIN. DISCUSSED MEDICATION DUE TIMES. PT VERBALIZED UNDERSTANDING. CALL LIGHT WITHIN REACH. WILL CONTINUE TO MONITOR.
--- NOTE | 2020-02-20 22:40 | NUR ---
PT TEARFUL AND RESTLESS. C/O TOOTH AND BACK PAIN. MEDICATED WITH PRN TORADOL AT THIS TIME. WILL CONTINUE TO MONITOR.
--- NOTE | 2020-02-21 01:29 | NUR ---
PT UP REQUESTING CRACKERS AND CEREAL. INFORM PT WE DO NOT HAVE AVAILABLE AT THIS TIME. PT REQUEST MILK, PROVIDED. WHEN RETURNED TO ROOM PT NOTED WITH EYES CLOSED SNORING. MILK PLACED ON BEDSIDE TABLE WITHIN REACH. WILL CONTINUE TO MONITOR.
[2020-02-21 03:30] VITALS: BP 148/97
[2020-02-21 04:23] VITALS: BP 140/98
[2020-02-21 09:33] VITALS: BP 149/78
--- NOTE | 2020-02-21 09:33 | NUR ---
PT SITTING IN BED. A&O X3. C/O OF HEADACHE AND ABD PAIN. PAIN MEDICATION GIVEN. IV SITE INFILTRATED. UNSUCCESSFUL WITH NEW IV. PT ENCOURAGED TO PRESS CALL LIGHT IF SOB DEVELOPS OR WEAKNESS INCREASES TO PREVENT A FALL. PT VERBALIZED UNDERSTANDING. NO OTHER NEEDS AT THIS TIME. ASSESSMENT COMPLETED. DISCUSSED POC. CALL LIGHT IN REACH. CONTINUE TO MONITOR.
[2020-02-21 10:30] VITALS: BP 149/78
--- NOTE | 2020-02-21 10:56 | NUR ---
UNABLE TO ESTABLISH IV, ATTEMPTS ALSO MADE BY SIVA FRANCIS. ER CALLED CAMERON FRANCIS TO ATTEMPT. FLAKO LOWRY NOTIFIED OF NO CURRENT IV SITE AND UNSUCCESSFUL ATTEMPTS. PER ESSENCE NOTIFY IF UNSUCCESSFUL AGAIN.
--- NOTE | 2020-02-21 12:18 | NUR ---
PT SITTING IN BED. NO DISTRESS NOTED. EXPLAINED TO PT THAT WITH NO IV ACCESS WE CANNOT GIVE HER THE NEW ORDERED MEDS NOR HER IV PAIN MEDICATION. EXPLAINED TO PT THAT ANOTHER NURSE WOULD REATTEMPT IV INSERTION, PT VERBALIZED UNDERSTANDING. TYLENOL GIVEN FOR HEADACHE. YANETH ARRIOLA AND GIGI FROM PHARMACY UPDATED ON IV ACCESS STATUS.
--- NOTE | 2020-02-21 14:50 | NUR ---
PER GEOPHYSICS PROFESSOR, UNABLE TO PLACE PICC LINE TODAY, WILL HAVE TO BE PLACED IN THE MORNING. YANETH NOTIFIED.
--- NOTE | 2020-02-21 15:15 | NUR ---
IV PLACEMENT SUCCESSFUL BY YANETH FRUIT RAISER. #22 INITIATED TO RU CHEST. PT TOLERATED WELL. GIGI FROM PHARMACY NOTIFIED, NEW MULTIVITAMIN BAG TO BE MADE AND BROUGHT. OKAY TO GIVE ABX.
--- NOTE | 2020-02-21 16:32 | NUR ---
Discharge instructions given to pts grand-daughter . Patient verbalizes understanding of same. Discharged in stable condition via Wheelchair to [facility] with staff. All belongings sent with pt.
--- NOTE | 2020-02-21 17:51 | NUR ---
PT DROWSY AT THE TIME. IV STILL PATENT. LIBRIUM NOT GIVEN AT THIS TIME. CALL LIGHT IN REACH. CONTINUE TO MONITOR.
[2020-02-21 19:00] VITALS: BP 135/77
--- NOTE | 2020-02-21 19:00 | NUR ---
RECEIVED REPORT FROM NURSE MULLER, PATIENT APPEARS TO BE SLEEPING WITH EYES CLOSED, BREATHING EVEN UNLABORED CALL LIGHT AT REACH.
--- NOTE | 2020-02-21 19:19 | NUR ---
MD MADE AWARE ABOUT PATIENT IV INFILTRATED AND NOT HAVING ANY ACCESS AT THIS TIME, WITH ORDERS TO D/C ALL IV MEDICATIONS,.
--- NOTE | 2020-02-21 19:46 | NUR ---
IV ON RUC INFILTRATED, CANULA REMOVED INTACT.
--- NOTE | 2020-02-21 21:00 | NUR ---
PATIENT ALERT ORIENTED, CALM AT THIS TIME, NO IV ACCESS, MD AWARE. CIWA SCORE 1, BREATHING EVEN UNLABORED, REMAINS ON ISOLATION, CALL LIGHT AT REACH.
[2020-02-22 04:00] VITALS: BP 121/75
--- NOTE | 2020-02-22 05:00 | NUR ---
PATIENT ALERT ORIENTED CIWA SCORE 3, HAND TREMORS NOTED, DUE LIBRIUM GIVEN, BREATHING EVEN UNLABORED, CALL LIGHT AT REACH.
[2020-02-22 06:57] LABS: HEMOGLOBIN 13.7 g/dl (12.0-16.0); IMMATURE GRANULOCYTES 0.3 % (0.0-5.0); MEAN CELL VOLUME 102.4 fL CALC (80.0-100.0); MEAN CORPUSCULAR HGB 33.4 pG CALC (26.0-32.0); MEAN CORPUSCULAR HGB CONC 32.6 g/dL CAL (32.0-36.0); NEUT# 4.66 thou/uL (2.00-7.15); RED BLOOD COUNT 4.1 mill/uL (4.20-5.60)
[2020-02-22 07:13] LABS: ALBUMIN 3.7 g/dL (3.2-5.0); ALKALINE PHOSPHATASE 115 u/l (38-126); ANION GAP 9 (6-22 (CALC)); BILIRUBIN, TOTAL 0.5 mg/dL (0.0-1.4); BUN 21 mg/dL (7-17); BUN/CREATININE RATIO 31 (12-20 (CALC)); CARBON DIOXIDE 26 mmol/l (22-30); CHLORIDE 105 mmol/l (95-108); CREATININE 0.7 mg/dL (0.5-1.0); GFR > 60 ML/MIN (>=60 (CALC)); GFR FOR AFR.AMER. > 60 ML/MIN (>=60 (CALC)); MAGNESIUM 2.1 mg/dL (1.6-2.3); POTASSIUM 4.8 mmol/l (3.5-5.1); SGOT/AST 106 u/l (14-36); SODIUM 135 mmol/l (137-146); TOTAL PROTEIN 7.3 g/dL (6.3-8.2)
[2020-02-22 07:47] VITALS: BP 137/90
--- NOTE | 2020-02-22 07:47 | NUR ---
PT LAYING IN BED. A&O X3. NO DISTRESS NOTED. PT MORE AGITATED THAN USUAL WITH SLIGHT ANXIETY NOTED. EXPLAINED TO PT THAT NO IV MEDICATION WAS AVAILABLE AT THIS TIME DUE TO NO IV ACCESS. PICC LINE TO BE PLACED. NO OTHER NEEDS AT THIS TIME. PT C/O OF ABD PAIN, TO BE NOTIFIED OF NO RELIEF. ASSESSMENT COMPLETED. DISCUSSED POC. CALL LIGHT IN REACH. CONTINUE TO MONITOR.
--- NOTE | 2020-02-22 11:01 | NUR ---
UPON ENTERING ROOM PT FOUND ON THE FLOOR. PT DENIES A FALL. STATES SHE WAS "DIZZY" AND THOUGHT THE BEST THING TO DO WAS LAY ON THE FLOOR. INITIALLY PT WOULD NOT RESPOND, WHEN FLAKO WOLFE WAS NOTIFIED AND ENTERED THE ROOM, PT WAS TALKING. DENIES HITTING HER HEAD OR FALLING. CONTINUE TO MONITOR.
--- NOTE | 2020-02-22 11:10 | NUR ---
DOUBLE LUMEN PICC TO ALISHA. FLUSHES WITH EASE AND HAS GOOD BLOOD RETURN. ARM CIRCUMFRENCE 28 CM.
[2020-02-22 14:50] VITALS: BP 99/60
--- NOTE | 2020-02-22 16:12 | NUR ---
PT SLEEPING IN BED. RESP EVEN AND UNLABORED. CONTINUE TO MONITOR.
[2020-02-22 19:00] VITALS: BP 128/73
--- NOTE | 2020-02-22 19:00 | NUR ---
RECEIVED REPORT FROM NURSE RENZO, PATIENT RESTING IN BED, WATCHING TV, BREATHING UNLABORED CALL LIGHT AT REACH.
--- NOTE | 2020-02-22 20:26 | NUR ---
CALLED DR. GAXIOLA ABOUT PATIENT REQUEST FOR PAIN MEDICATION STATED TO CONTINUE TRAMADOL AND ALTERNATE WITH TYLENOL.
--- NOTE | 2020-02-22 21:00 | NUR ---
PATIENT ALERT ORIENTED, WITH ONGOING BANANA BAG INFUSING WELL ON ALISHA DOUBLE LUMEN PICC, LBM 10/6, C/O GENERALIZED BODY PAIN PRN TRAMADOL GIVEM WILL REEVALUATE, ACTIVE BOWEL SOUNDS ON ALL QUANDRANTS REMAINS ON AIR/CONTACT PRECAUTION CALL LIGHT AT REACH.
--- NOTE | 2020-02-23 | NUR ---
PATIENT AGITATED SCHEDULED LIBRIUM GIVEN, CIWA SCORE 10, PATIENT BOWEL INCONTINENCE, CALL LIGHT AT REACH, BREATHING UNLABORED.
[2020-02-23 04:00] VITALS: BP 119/74
--- NOTE | 2020-02-23 04:00 | NUR ---
PATIENT APPEARS TO BE SLEEPING NO DISCOMFORTS NOTED AT THIS TIME, BREATHING UNLABORED CALL LIGHT AT REACH.
[2020-02-23 05:26] LABS: HEMATOCRIT 38.7 % (37.0-47.0); HEMOGLOBIN 12.4 g/dl (12.0-16.0); IMMATURE GRANULOCYTES 0.3 % (0.0-5.0); MEAN CORPUSCULAR HGB 33.3 pG CALC (26.0-32.0); NEUT# 2.93 thou/uL (2.00-7.15); RED BLOOD COUNT 3.72 mill/uL (4.20-5.60); RED CELL DISTRI WIDTH 13.2 % (11.5-15.5)
[2020-02-23 05:51] LABS: ALBUMIN 3.1 g/dL (3.2-5.0); ALKALINE PHOSPHATASE 97 u/l (38-126); ANION GAP 7 (6-22 (CALC)); BUN 13 mg/dL (7-17); BUN/CREATININE RATIO 21 (12-20 (CALC)); C-REACTIVE PROTEIN 1.4 mg/dL (0-0.9); CARBON DIOXIDE 27 mmol/l (22-30); CHLORIDE 107 mmol/l (95-108); CREATININE 0.6 mg/dL (0.5-1.0); GFR > 60 ML/MIN (>=60 (CALC)); GFR FOR AFR.AMER. > 60 ML/MIN (>=60 (CALC)); POTASSIUM 3.9 mmol/l (3.5-5.1); SGOT/AST 86 u/l (14-36); SODIUM 138 mmol/l (137-146); TOTAL PROTEIN 6.3 g/dL (6.3-8.2)
[2020-02-23 05:57] LABS: BILIRUBIN, TOTAL 0.2 mg/dL (0.0-1.4)
--- NOTE | 2020-02-23 06:59 | NUR ---
REPORT RECEIVED FROM BONILLA MARTIN RN. PT RESTING IN BED, NO S/S OF DISTRESS AT THIS TIME. SAFETY PRECAUTIONS IN PLACE. WILL CONTINUE TO MONITOR.
--- NOTE | 2020-02-23 09:03 | NUR ---
ANRP CARTEE AT BEDSIDE DISCUSSING PLAN OF CARE WITH PATIENT
[2020-02-23 09:07] VITALS: BP 135/85
--- NOTE | 2020-02-23 09:07 | NUR ---
PT SITTING UP IN BED ALERT AND ORIENTED. RESPIRATIONS EVEN AND UNLABORED ON RA. LUNGS SOUND DIMINISHED. PEDAL PULSES ARE WEAK. PT SEEMS AGITATED THROWING BP CUFF OFF, SLAMMING THINGS ON HER BREAKFAST TRAY. PT STATES "IM NOT A VERY NICE PERSON, CAN SOMEONE WARM UP MY BREAKFAST TRAY?" POULTRY SCALDER EDUCATED PT ON PRECAUTIONS FOR COVID, THAT WE ARE UNABLE TAKE FOOD FROM HER ROOM TO BE HEATED UP, OFFERED TO TRY TO GET PT ANOTHER TRAY. PT PUSHED TRAY AWAY STATING SHES NOT GOING TO EAT TODAY. PT LAID BACK IN BED PULLING BLANKETS OVER HER HEAD IGNORRING POULTRY SCALDER FOR SEVERAL MINUTES. PT SAT UP STATING "I WANT TO SEE THE DOCTOR, I'M IN PAIN, THIS ULTAM ISN'T HELPING." TO BE NOTIFIED. PT REFUSING COMFORT MEASURES OFFERED AT THIS TIME. SAFETY PRECAUTIONS IN PLACE. WILL CONTINUE TO MONITOR.
--- NOTE | 2020-02-23 12:15 | NUR ---
PT AGGITATED WANTING TO TALK TO THE DOCTOR. KAMALJIT JO AND SHOP HELPER IN ROOM WITH PT DISCUSSING CONCERNS. PT STATES "SOMEONE TOLD MY FAMILY I CAME IN LOADED UP ON DRUGS, THATS AGAINST HIPPA" KAMALJIT JO ADDRESSED PT CONCERNS. NO ONE HAS SPOKEN WITH THE PATIENTS FAMILY AT THIS TIME THAT WE ARE AWARE OF. PT SEEMS CALMER. SAFETY PRECAUTIONS IN PLACE. WILL CONTINUE TO MONITOR.
[2020-02-23 15:18] VITALS: BP 114/75
--- NOTE | 2020-02-23 16:05 | NUR ---
PT RESTING IN BED. NO S/S OF DISTRESS AT THIS TIME. SAFETY PRECAUTIONS IN PLACE. WILL CONTINUE TO MONITOR.
[2020-02-23 19:00] VITALS: BP 142/99
--- NOTE | 2020-02-23 20:01 | NUR ---
PT MEDICATED FOR PAIN AND ANXIETY UPON REQUEST. NO APPARENT DISTRESS NOTED. IV FLUIDS INFUSING WITHOUT DIFFICULTY TO ALISHA PICC, SITE APPEARS HEALTHY. BSC EMPTIED AT THIS TIME, PT STATES X1 VOID AND LARGE FORMED BM NOTED. PT DENIES ANY OTHER CURRENT WANTS OR NEEDS. CALL LIGHT WITHIN REACH. WILL CONTINUE TO MONITOR.
--- NOTE | 2020-02-23 20:32 | NUR ---
PT CALLED REQUESTING POPCORN. PT MADE AWARE NO POPCORN AVAILABLE AT THIS TIME. PT DENIES ANY OTHER WANTS OR NEEDS. INFORMED PT THATS SNACK CAN BE PROVIDED WHEN NURSE RETURNS TO ROOM WITH MEDICATIONS. PT VERBALIZED UNDERSTANDING.
--- NOTE | 2020-02-23 21:03 | NUR ---
PT NOTED SITTING ON BSC. PT DISGRUNTLED WITH STAFF AND CRYING. PT HAD INCONTINENT EPISODE IN BED. PT STATES SHE VOIDED IN BED BECAUSE SHE FELL YESTERDAY. PT CALLED AFTER INCONTINENT EPISODE, WHEN ASKED WHY PT DID NOT CALL PRIOR TO FOR STAFF ASSISTANCE TO BSC, PT STARTED YELLING AT STAFF STATING THAT STAFF DOES NOT LIKE TO COME IN HERE. ELECTRIC SHAVER MECHANIC DISCUSSED WITH PT THAT BEING IN ISOLATION ON DROPLET PRECAUTIONS LIMITS STAFF TO ENTERING ROOM DUE TO AMOUNTS OF PPE USED AND EXPOSURE RISKS FOR STAFF AND OTHER PATIENTS. ELECTRIC SHAVER MECHANIC WAS JUST IN ROOM TO MEDICATE PT PRIOR TO INCIDENT AND PT HAS CALLED SEVERAL OTHER TIMES FOR REQUESTS OF POPCORN AND SNACKS THAT WERE NOT AVAILABLE. PT ENCOURAGED TO USE CALL LIGHT FOR ASSISTANCE TO BSC. SHOWER AND LINEN CHANGE PROVIDED AT THIS TIME. CALL LIGHT WITHIN REACH. WILL CONTINUE TO MONITOR.
--- NOTE | 2020-02-23 22:05 | NUR ---
PT CALLED READING SPECIALIST TO ROOM, WHEN ASKED IF NURSE COULD BRING ANYTHING TO PT AT THIS TIME PT DENIES AND STATES I JUST NEED TO SEE MY NURSE. UPON ENTERING ROOM PT NOTED SITTING UP IN BED. PT APPEARS SOB. CURRENT O2 SAT 94% ON RA. PT STATES " I JUST HAD TO CLEAN MY OWN FLOOR BECAUSE I SPILLED MY COKE", READING SPECIALIST ASKED PT WHY SHE DID NOT REPORT SPILL TO STAFF, PT JUST LOOKED AT READING SPECIALIST. PT BELLIGERENT WITH STAFF. PT DENIES ANY CURRENT WANTS OR NEEDS AT THIS TIME. ENCOURAGED PT CALL FOR ASSISTANCE AND DISCUSSED SAFETY PRECAUTION, PT CUSSING AT READING SPECIALIST TO LEAVE ROOM. CALL LIGHT WITHIN REACH. WILL CONTINUE TO MONITOR.
--- NOTE | 2020-02-23 22:27 | NUR ---
PT CALLED FOR SNACK, OFFERED PUDDING OR YOGURT. PT REFUSED. PT REQUESTING SOUP IN ROOM BE HEATED, PT EDUCATED ON INFECTION CONTROL AND BEING IN ISOLATION. PT BECOMES BELLIGERENT WITH STAFF AND REQUESTS TO TALK WITH EARTH SCIENCE LABORATORY TECHNICIAN. EARTH SCIENCE LABORATORY TECHNICIAN NOTIFIED AT THIS TIME.
--- NOTE | 2020-02-23 23:10 | NUR ---
PT CALLED REQUESTING MEDICATIONS. PT MEDICATED FOR PAIN AND ABD PAIN AT THIS TIME. SALTINE CRACKER ALSO PROVIDED. CALL LIGHT WITHIN REACH. WILL CONTINUE TO MONITOR.
--- NOTE | 2020-02-24 00:10 | NUR ---
PT RESTING IN BED WITH EYES CLOSED. NO APPARENT DISTRESS NOTED. RESPIRATIONS EVEN AND UNLABORED. CALL LIGHT WITHIN REACH. WILL CONTINUE TO MONITOR.
[2020-02-24 04:00] VITALS: BP 114/80
--- NOTE | 2020-02-24 04:00 | NUR ---
PT MEDICATED FOR PAIN AND ANXIETY. PT PLEASANT THIS MORNING. CRACKERS AND SODA PROVIDED UPON REQUEST. CALL LIGHT WITHIN REACH. WILL CONTINUE TO MONITOR.
[2020-02-24 08:06] VITALS: BP 133/91
--- NOTE | 2020-02-24 11:00 | NUR ---
PT RESTING IN BED, NO S/S OF DISTRESS AT THIS TIME. SAFETY PRECAUTIONS IN PLACE. WILL CONTINUE TO MONTIOR.
[2020-02-24 14:50] VITALS: BP 137/78
--- NOTE | 2020-02-24 16:15 | NUR ---
PT RESTING IN BED. NO S/S OF DISTRESS AT THIS TIME. SAFETY PRECAUTIONS IN PLACE. WILL CONTINUE TO MONITOR.
--- NOTE | 2020-02-24 19:30 | NUR ---
REPORT FROM JOSE L FRANCIS. NO APPARENT DISTRESS NOTED. CALL LIGHT WITHIN REACH. WILL CONTINUE TO MONITOR.
[2020-02-24 20:00] VITALS: BP 140/73
--- NOTE | 2020-02-24 20:26 | NUR ---
PT C/O GENERALIZED PAIN. MEDICATED AT THIS TIME WITH PRN ULTRAM. NO OTHER WANTS OR NEEDS. CALL LIGHT WITHIN REACH. WILL CONTINUE TO MONITOR.
--- NOTE | 2020-02-24 21:00 | NUR ---
PT AGGITATED AND CRYING C/O HEADACHE. PT MEDICATED FOR PAIN AND AGGITATION AT THIS TIME. CUP OF ICE AND SODA PROVIDED UPON REQUEST. NO APPARENT DISTRESS NOTED. IVF INFUSING WITHOUT DIFFICULTY. CALL LIGHT WITHIN REACH. WILL CONTINUE TO MONITOR.
--- NOTE | 2020-02-25 01:11 | NUR ---
PT RESTING IN BED WITH EYES CLOSED. NO APPARENT DISTRESS NOTED. RESPIRATIONS EVEN AND UNLABORED. CALL LIGHT WITHIN REACH. WILL CONTINUE TO MONITOR.
[2020-02-25 05:00] VITALS: BP 98/65
--- NOTE | 2020-02-25 05:00 | NUR ---
LABS OBTAINED FROM PICC LINE PER PROTOCOL. MEDICATED FOR PAIN AT THIS TIME. NO APPARENT DISTRESS NOTED. PT DENIES ANY OTHER NEEDS. CALL LIGHT WITHIN REACH. WILL CONTINUE TO MONITOR.
[2020-02-25 05:18] LABS: HEMATOCRIT 36.5 % (37.0-47.0); HEMOGLOBIN 11.9 g/dl (12.0-16.0); IMMATURE GRANULOCYTES 0.4 % (0.0-5.0); MEAN CELL VOLUME 103.4 fL CALC (80.0-100.0); MEAN CORPUSCULAR HGB 33.7 pG CALC (26.0-32.0); MEAN CORPUSCULAR HGB CONC 32.6 g/dL CAL (32.0-36.0); NEUT# 2.62 thou/uL (2.00-7.15); RED BLOOD COUNT 3.53 mill/uL (4.20-5.60); RED CELL DISTRI WIDTH 13.1 % (11.5-15.5)
[2020-02-25 05:49] LABS: ALBUMIN 3.2 g/dL (3.2-5.0); ALKALINE PHOSPHATASE 97 u/l (38-126); ANION GAP 7 (6-22 (CALC)); BUN 11 mg/dL (7-17); BUN/CREATININE RATIO 20 (12-20 (CALC)); C-REACTIVE PROTEIN 1.1 mg/dL (0-0.9); CARBON DIOXIDE 30 mmol/l (22-30); CHLORIDE 104 mmol/l (95-108); CREATININE 0.6 mg/dL (0.5-1.0); GFR > 60 ML/MIN (>=60 (CALC)); GFR FOR AFR.AMER. > 60 ML/MIN (>=60 (CALC)); POTASSIUM 4.1 mmol/l (3.5-5.1); SGOT/AST 84 u/l (14-36); SODIUM 137 mmol/l (137-146); TOTAL PROTEIN 6.5 g/dL (6.3-8.2)
[2020-02-25 05:53] LABS: BILIRUBIN, TOTAL 0.3 mg/dL (0.0-1.4)
--- NOTE | 2020-02-25 08:15 | NUR ---
PT CURRENTLY SLEEPING IN BED. NO DISTRESS NOTED. RESP EVEN AND UNLABORED. CONTINUE TO MONITOR.
[2020-02-25 09:42] VITALS: BP 105/79
--- NOTE | 2020-02-25 12:14 | NUR ---
PT SLIGHTLY ANXIOUS, IV ATIVAN GIVEN. NO OTHER NEEDS AT THIS TIME. CALL LIGHT IN REACH. CONTINUE TO MONITOR.
[2020-02-25 14:50] VITALS: BP 138/64
--- NOTE | 2020-02-25 16:47 | NUR ---
PT SLEEPING IN BED. RESP EVEN AND UNLABORED. CONTINUE TO MONITOR.
[2020-02-25 19:00] VITALS: BP 160/91
--- NOTE | 2020-02-25 20:31 | NUR ---
PATIENT SITTING UP IN BED AT THIS TIME-AWAKE ALERT AND ORIENTEDX3. PATIENT C/O SEVERE HEADACHE AND LEFT UPPER ABD PAIN-MEDICATED WITH TRAMADOL FOR 10/10 PAIN SCALE. PATIENT MEDICATED WITH BENTYL 20MG PO FOR ABD PAIN. MEDICATED WITH LIBRIUM AND ATIVAN PER PATIENT REQUEST FOR ANXIETY. IVF NS HUNG AND INFUSING VIA RIGHT DOUBLE LUMEN PICC AT 100CC/HR. SITE IS HEALTHY AT THIS TIME. PATIENT STATES THAT SHE DID HAVE DIARRHEA EARLIER TODAY. OCC NON-PRODUCTIVE COUGH. LUNGS ARE CLEAR AT THIS TIME. ISOLATION PRECAUTIONS MAINTAINED AND PATIENT IS IN NEG PRESSURE ROOM. PATIENT PROVIDED WITH DRINKS AND ICE PER PATIENT REQUEST. SAFETY PRECAUTIONS REINFORCED. CALL LIGHT IN REACH. PATIENT DID EAT 100% FROM DINNER TRAY TONIGHT. WILL CONT TO MONITOR.
--- NOTE | 2020-02-25 21:50 | NUR ---
PATIENT RESTING IN BED WATCHING TV WITH LIGHTS OUT. STILL C/O OF SEVERE H/A-10/10 ON PAIN SCALE. MEDICATED WITH TORADOL 15MG IVP FOR H/A VIA RIGHT PICC. SOL VARGAS ORDERED. PATIENT PROVIDED WITH ICE CREAM AND DRINKS PER PATIENT REQUEST. ISOLATION PRECAUTIONS MAINTAINED. SAFETY PRECAUTIONS REINFORCED. CALL LIGHT IN REACH. WILL CONT TO MONITOR.
--- NOTE | 2020-02-26 03:37 | NUR ---
PATIENT CALLED REQUESTING PAIN MEDS AND SOMETHING FOR SOMETHING FOR ANXIETY. PATIENT MEDICATED FOR 5/10 HEADACHE. MEDICATED WITH TORADOL 15MG AND TRAMADOL 50MG FOR PAIN AND WITH LIBRIUM 50MG PO FOR ANXIETY. RESTING IN BED. SAFETY PRECAUTIONS REINFORCED. CALL LIGHT IN REACH. WILL CONT TO MONITOR.
[2020-02-26 04:00] VITALS: BP 131/72
[2020-02-26 07:54] VITALS: BP 140/89
--- NOTE | 2020-02-26 07:54 | NUR ---
PT RESTING IN BED, NO SIGNS OF DISTRESS NOTED, RESP EVEN AND UNLABORED. PT EASILY AROUSED TO VERBAL STIMULI PT ALERT AND ORIENTED X3, DISCUSSED POC, IVF RUNNING TO DL PICC TO ALISHA, PT REQUESTING MEDICATIONS:ATIVAN, TRAMADOL, TORDOL, LIBRIUM, BENTYL, INFORMED PT THAT MEDICATIONS ARE NOT DUE AT THIS TIME, PT VERBALIZED UNDERSTANDING. ASSESSMENT COMPLETED, VSS. PT MEDICATED PER MAR. CALL LIGHT IN REACH,CONTINUE TO MONITOR.
--- NOTE | 2020-02-26 09:47 | NUR ---
PT RESTING IN BED WITH EYES CLOSED, NO SIGNS OF DISTRESS NOTED, RESP EVEN AND UNLABORED. PT AWAKENED FOR BANANA BAG INFUSION, PT VERBALIZED UNDERSTANDING. PT C/O HEADACHE 09/25 AND C/O ANXIETY REQUESTING ATIVAN, OFFERED PT LIBRIUM, PT AGREED. PT MEDICATED PER JUL. PT STATES SHE WANTS HER ATIVAN AND TORADOL MEDICATIONS INCREASED OR TIMES CHANGED, INFORMED PT OF AFFECTS OF BOTH MEDICATIONS. QUESTIONS FOR MD WERE PLACED ON BOARD BY HAND KNITTER SO PT WOULD NOT FORGET, AWAITING MD FOR ROUNDS. PT REQUESTING COLA AND ICE. CALL LIGHT IN REACH,CONTINUE TO MONITOR.
--- NOTE | 2020-02-26 11:42 | NUR ---
PT CALLED REQUESTING ATIVAN, PT ATE LUNCH, MEDICATED PER JUL. CALL LIGHT IN REACH,CONTINUE TO MONITOR.
[2020-02-26 16:00] VITALS: BP 145/86
--- NOTE | 2020-02-26 16:13 | NUR ---
PT RESTING IN BED, NO SIGNS OF DISTRESS NOTED, RESP EVEN AND UNLABORED. PT MEDICATED FOR PAIN, PT REQUESTING ATIVAN WELL, NOTED PT ON CELL PHONE UPSET. PT MEDICATED PER JUL. CALL LIGHT IN REACH,CONTINUE TO MONITOR.
[2020-02-26 19:00] VITALS: BP 134/98
--- NOTE | 2020-02-26 19:00 | NUR ---
REPORT RECEIVED FROM Keyla KOLB LPN, CARE OF PT ASSUMED AT THIS TIME.
--- NOTE | 2020-02-26 20:15 | NUR ---
PHYSICAL ASSESMENT COMPLETE. PT C/O HEADACHE 12/26-SEE E-MAR FOR ADMNISTRATION OF PRN MEDS. SCHEDULED MEDICATIONS ADMINISTERED, SEE E-MAR. ROOM DARKENED AND COOL WASH CLOTH APPLIED TO FOREHEAD. MILK PROVIDED PER PTS REQUEST. PT DENIES FURTHER NEEDS AT THIS TIME. PLAN OF CARE REVIEWED, PT DENIES QUESTIONS, VERBALIZES UNDERSTANDING. ITEMS WITHIN REACH, BED LOCKED IN LOW POSITION W/ BEDRAILS UP X2. CALL BARNES WITHIN REACH, AGREES TO CALL PRN.
--- NOTE | 2020-02-26 23:36 | NUR ---
MEDICATED WITH PRN TORADOL FOR C/O HEADACHE AND SCHEDULED LIBRIUM, PT DENIES FURTHER NEEDS. CALL BARNES REMAINS WITHIN REACH, AGREES TO CALL PRN.
[2020-02-27 04:00] VITALS: BP 143/83
--- NOTE | 2020-02-27 07:10 | NUR ---
REPORT RECEIVED FROM PENNY LINCOLN
[2020-02-27 09:00] VITALS: BP 134/71
--- NOTE | 2020-02-27 09:05 | NUR ---
PT RESTING IN SEMI FOWLERS POSITION,A&O X3;VS OBTAINED AND ASSESSMENT COMPLETED;PT REPORTS HEADACHE PAIN AND REQUESTS TORADOL, PT EDUCATED ON MEDICATION SCHEDULE AND REPORTS THAT SHE WAS RECEIVING TORADOL Q2 HOURS LAST NIGHT;WRITTER SHOWED PT THE EMAR AND REASSURED HER THAT WAS NOT THE CASE;RESPIRATIONS EVEN AND UNLABORED ON RA,CLEAR LUNG SOUNDS;ABDOMEN SOFT ON PALPATION AND ACTIVE IN ALL 4 QUADRANTS;STRONG PEDAL PULSES;SKIN INTACT;ALISHA DL PICCLINE INFUSING NS WITH EASE PER ORDER,BANANA BAG HUNG AT THIS TIME;PT REMAINS IN AIR/CONTACT PRECAUTIONS DUE TO COVID19 DX;PT DENIES ANY ADDITIONAL NEEDS AT THIS TIME AND IS ENCOURAGED TO CALL FOR ASSISTANCE IF NEEDED;FALL PRECAUTIONS IN PLACE WITH BED IN THE LOWEST POSITION AND CALL LIGHT IN REACH;WILL CONTINUE TO MONITOR
--- NOTE | 2020-02-27 11:20 | NUR ---
PT RESTING IN SEMI FOWLERS POSITION;RESPIRATIONS EVEN AND UNLABORED ON RA;PT DENIES ANY CURRENT PAIN OR NEEDS;IV SITE PATENT INFUSING BANANA BAG PER ORDER;PT MEDICATED WITH SCHEDULED LIBRIUM PO AND ATIVAN 1MG IVP AT THIS TIME;PT DENIES ANY ADDITIONAL NEEDS;ASSESSMENT REMAINS UNCHANGED;ENCOURAGED TO CALL FOR ASSISTANCE IF NEEDED;FALL PRECAUTIONS IN PLACE WITH BED IN THE LOWEST POSITION AND CALL LIGHT IN REACH;WILL CONTINUE TO MONITOR
--- NOTE | 2020-02-27 14:15 | NUR ---
PT MEDICATED WITH PRN TORADOL 15MG IVP PER REQUEST FOR HEADACHE PAIN RATING 7/10 ON THE PAIN SCALE,WILL CONTINUE TO MONITOR FOR EFFECTIVENESS
[2020-02-27 15:00] VITALS: BP 140/86
--- NOTE | 2020-02-27 15:24 | NUR ---
PT RESTING IN SEMI FOWLERS POSITION;RESPIRATIONS EVEN AND UNLABORED ON RA;PT DENIES ANY CURRENT PAIN OR DISCOMFORTS;IV FLUIDS CONTINUE TO INFUSE TO ALISHA PICCLINE WITH EASE;ASSESSMENT REMAINS UNCHANGED AT THIS TIME;FALL PRECAUTIONS IN PLACE WITH BED IN THE LOWEST POSITION AND CALL LIGHT IN REACH;WILL CONTINUE TO MONITOR
--- NOTE | 2020-02-27 17:55 | NUR ---
PT MEDICATED WITH PRN ATIVAN 1MG IVP AT THIS TIME FOR ANXIETY,WILL CONTINUE TO MONITOR
[2020-02-27 19:00] VITALS: BP 134/88
--- NOTE | 2020-02-27 20:00 | NUR ---
PATIENT RESTING IN BED AT THIS TIME-AWAKE ALERT AND ORIENTEDX3. PATIENT APPETITE FOR DINNER ONLY FAIR. IVF NS HUNG AND INFUSING VIA RIGHT UPPER ARM PICC AT 100CC/HR. SITE IS HEALTHY AT THIS TIME. PATIENT IS ON ISOLATION FOR COVID AND ESBL-ISOLATION PRECAUTIONS MAINTAINED AND PATIENT IS IN NEG PRESSURE ROOM. SAFETY PRECAUTIONS REINFORCED. CALL LIGHT IN REACH. WILL CONT TO MONITOR.
--- NOTE | 2020-02-27 21:45 | NUR ---
PATIENT RESTING IN BED-C/O HEADACHE AND LEFT ABD PAIN-MEDICATED WITH TORADOL 15MG IVP AND WITH TRAMADOL 50MG PO FOR PAIN. PATIENT PROVIDED WITH SODA, ICE AND TURKEY DINNER PER PATIENT REQUEST. CALL LIGHT IN REACH. WILL CONT TO MONITOR.
--- NOTE | 2020-02-27 23:38 | NUR ---
PATIENT RESTING IN BED-C/O ANXIETY AND LEFT UPPER QUADRANT PAIN. MEDICATED WITH ATIVAN 1MG IVP AND LIBRIUM 25MG PO FOR ANXIETY. MEDICATED WITH BENTYL 20MG PO FOR ABD PAIN. PATIENT STATES THAT SHE CONT TO HAVE DIARRHEA TONIGHT. VOIDINING QS CLEAR YELLOW URINE. IVF PATENT AND INFUSING VIA RIGHT UPPER ARM PICC AT 100CC/HR. SITE REMAINS HEALTHY AT THIS TIME. SAFETY PRECAUTIONS REINFORCED. ISOLATION PRECAUTIONS MAINTAINED. CALL LIGHT IN REACH. WILL CONT TO MONITOR.
[2020-02-28] VITALS: BP 121/61
--- NOTE | 2020-02-28 03:51 | NUR ---
PATIENT CALLED ASKING FOR MEDS FOR HEADACHE AND ANXIETY. MEDICATED WITH TRAMADOL 15MG IVP AND TRAMADOL 50MG PO FOR HEADACHE. MEDICATED FOR ANXIETY WITH ATIVAN 1MG IVP. PROVIDED WITH COLA DRINK AND ICE PER PATIENT REQUEST. ISOLATION PRECAUTIONS MAINTAINED. SAFETY PRECAUTIONS REINFORCED. CALL LIGHT IN REACH. WILL CONT TO MONITOR.
[2020-02-28 04:00] VITALS: BP 118/80
--- NOTE | 2020-02-28 08:00 | NUR ---
REPORT RECEIVED FROM PENNY GUTIERREZ. PT RESTING IN BED ON LEFT SIDE WITH EYES CLOSED; AWAKNES SPONTANEOUSLY; ALERT AND ORIENTED. C/O HEADACHE 5/10, WEAKNESS, ACHING JOINTS, AND STATES THAT HER FEET HURT WHEN SHE WALKS ON THEM. ALSO REPORTS CONTINUED DIARRHEA SINCE ADMISSION. STATES THAT ALL PAIN MEDICATION IS INEFFECTIVE. RESPIATIONS EVEN AND UNLABORED ON ROOM AIR. LUNGS ARE CLEAR; ABDOMEN IS DISTENDED AND SOFT WITH HYPERACTIVE BS. PLAN OF CARE REVIEWED. PT ENCOURAGED TO VERBALIZE ANY OTHER CONCERNS. STATES UNDERSTANDING AND LISTS MULITPLE OTHER NEEDS. SAFETY MEASURES IN PLACE. CALL LIGHT WITHIN REACH.
[2020-02-28 08:01] VITALS: BP 123/80
--- NOTE | 2020-02-28 08:24 | NUR ---
TRANSPORTED TO [facility]
--- NOTE | 2020-02-28 08:30 | NUR ---
PT STATES THAT SHE REMOVED HER NICOTINE PATCH LAST NIGHT BECAUSE IT GIVES HER NIGHTMARES BUT SHE WANTS IT APPLIED IN THE MORNINGS; PATCH APPLIED TO LEFT UPPER ARM.
--- NOTE | 2020-02-28 11:28 | NUR ---
PT RESTING IN BED. PT PROVIDED WITH COFFEE, MILK, SUGAR, AND ICE PER REQUEST. SAFETY PRECAUTIONS IN PLACE. WILL CONTINUE TO MONITOR.
[2020-02-28 14:40] VITALS: BP 168/96
--- NOTE | 2020-02-28 16:30 | NUR ---
PT RESTING IN BED. NO S/S OF DISTRESS AT THIS TIME. SAFETY PRECAUTIONS IN PLACE.
[2020-02-28 19:30] VITALS: BP 134/92
--- NOTE | 2020-02-28 22:04 | NUR ---
ASSESSMENT AND VITALS COMPLETED AT THIS TIME. RESPIRATIONS ARE CLEAR.NO SIGNS OF DISTRESS, O2 SAT 100% ON RA. HEART RHYTHM WAS HEARD NORMAL. BOWEL SOUNDS ARE ACTIVE IN ALL QUADRANTS, LAST REPORTED BM 02/28/20.PT DOES C/O OF UPPER GASTRIC PAIN. RADIAL AND PEDAL PULSES ARE STRONG WITH NORMAL CAPILLARY REFILL. SKIN IS INTACT. PT IS USING THE REST ROOM. PT DENIES ANY ADDITIONAL NEEDS AT THIS TIME. ALL SAFETY PRECAUTIONS ARE IN PLACE WITH CALL LIGHT IN REACH. WILL CONTINUE TO MONITOR.
--- NOTE | 2020-02-29 00:02 | NUR ---
PT RESTING IN BED, NO SIGNS OF DISTRESS NOTED, RESP EVEN AND UNLABORED. PT VOICES NO NEEDS OR COMPLAINTS AT THIS TIME. CALL LIGHT IN REACH,CONTINUE TO MONITOR.
--- NOTE | 2020-02-29 02:15 | NUR ---
PT C/O OF PAIN. PROVIDED PRN ULTRAM. WILL CONTINUE TO MONITOR.
--- NOTE | 2020-02-29 04:02 | NUR ---
PT LAYING IN BED WITH EYES CLOSED, APPEARS TO BE SLEEPING, APPEARS COMFORTABLE AND IN NO DISTRESS. RESPIRATIONS REGULAR AND UNLABORED. ITEMS REMAIN WITHIN REACH, CALL BARNES REMAINS WITHIN REACH. BED REMAINS LOCKED AND IN LOW POSITION WITH BEDRAILS UP X2. WILL CONTINUE TO MONITOR.
[2020-02-29 04:26] VITALS: BP 111/84
[2020-02-29 06:09] LABS: HEMATOCRIT 40.3 % (37.0-47.0); IMMATURE GRANULOCYTES 0.2 % (0.0-5.0); MEAN CELL VOLUME 103.9 fL CALC (80.0-100.0); MEAN CORPUSCULAR HGB 33.5 pG CALC (26.0-32.0); MEAN CORPUSCULAR HGB CONC 32.3 g/dL CAL (32.0-36.0); RED BLOOD COUNT 3.88 mill/uL (4.20-5.60); RED CELL DISTRI WIDTH 12.7 % (11.5-15.5)
[2020-02-29 06:29] LABS: ALBUMIN 3.6 g/dL (3.2-5.0); ALKALINE PHOSPHATASE 102 u/l (38-126); ANION GAP 9 (6-22 (CALC)); BILIRUBIN, TOTAL 0.3 mg/dL (0.0-1.4); BUN 13 mg/dL (7-17); BUN/CREATININE RATIO 19 (12-20 (CALC)); C-REACTIVE PROTEIN 0.7 mg/dL (0-0.9); CARBON DIOXIDE 29 mmol/l (22-30); CHLORIDE 104 mmol/l (95-108); CREATININE 0.7 mg/dL (0.5-1.0); GFR > 60 ML/MIN (>=60 (CALC)); GFR FOR AFR.AMER. > 60 ML/MIN (>=60 (CALC)); SGOT/AST 88 u/l (14-36); SODIUM 137 mmol/l (137-146); TOTAL PROTEIN 7.1 g/dL (6.3-8.2)
[2020-02-29 07:51] VITALS: BP 118/82
[2020-02-29 09:45] VITALS: BP 118/82
--- NOTE | 2020-02-29 11:12 | NUR ---
PT AWAKE, ALERT, ORIENTED X 3. LUNGS CLEAR, RA. PT UP TO BR NEEDED. PT MEDICATED FOR ANXIETY AND HEADACHE THIS MORNING. PUE PICC WORKING WELL. NO COMPLAINTS OF SHORTNESS OF BREATH.
--- NOTE | 2020-02-29 12:51 | NUR ---
PT MADE AWARE OF NEGATIVE COVID SWAB. PT ABLE TO PROVIDE URINE SPECIMEN TO CHECK FOR ESBL AGAIN. NO DISTRESS, NO COMPLAINTS.
[2020-02-29 12:57] LABS: URINE BILIRUBIN - DIPSTICK NEGATIVE (NEGATIVE); URINE BLOOD DIPSTICK NEGATIVE (NEGATIVE); URINE COLOR YELLOW; URINE GLUCOSE - DIPSTICK NEGATIVE (NEGATIVE); URINE KETONE NEGATIVE (NEGATIVE); URINE LEUK ESTERASE NEGATIVE (NEGATIVE); URINE NITRITE - DIPSTICK NEGATIVE (Negative); URINE PH 6.5 (4.5-8.0); URINE PROTEIN - DIPSTICK NEGATIVE (NEG-TRACE); URINE SPECIFIC GRAVITY 1.015; URINE UROBILINOGEN - DIPSTICK 0.2 E.U./dL (0.2)
[2020-02-29] MEDS ORDERED: TRAMADOL HCL50 MG PO (14:49)
[2020-02-29] MEDS ORDERED: LOSARTAN POTASS50 MG PO (14:49)
[2020-02-29] MEDS ORDERED: PANTOPRAZOLE SO40 M1 PO (14:49)
[2020-02-29] MEDS ORDERED: DICYCLOMINE HCL10 MG PO (14:49)
[2020-02-29] MEDS ORDERED: AMLODIPINE BESYL5 MG PO (14:49)
--- NOTE | 2020-02-29 15:47 | NUR ---
PT HAS BEEN DISCHARGED. TAXI WAS CALLED AND SHE WAS TAKEN TO [facility]. PT LEAVES [facility] IN STABLE CONDITION, VERBALIZED UNDERSTANDING OF DC INSTRUCTIONS PRIOR.
== END 2020-02-29 15:47 | disposition home or self-care (01) | DRG 178 ==
LOC: ED 12:40 → ED-I 16:09 → ED 16:34 → ICU 16:35 → MS2 02-20 14:38
PROVIDERS: Family Medicine; Nurse Practitioner; ADMIT Internal Medicine; ATTEND Internal Medicine
PROC: 02HV33Z Insertion of Infusion Device into Superior Vena Cava, Percutaneous Approach (ICD-10-PCS; principal; 2020-02-22)
PROC: B518ZZA Fluoroscopy of Superior Vena Cava, Guidance (ICD-10-PCS; 2020-02-22)
DX: U07.1 COVID-19 (principal); N39.0 Urinary tract infection, site not specified; Z16.12 Extended spectrum beta lactamase (ESBL) resistance; F10.131 Alcohol abuse with withdrawal delirium; R51.9 Headache, unspecified; R11.2 Nausea with vomiting, unspecified; R19.7 Diarrhea, unspecified; R43.8 Other disturbances of smell and taste; R10.10 Upper abdominal pain, unspecified; E86.0 Dehydration; R00.0 Tachycardia, unspecified; I10 Essential (primary) hypertension; G40.909 Epilepsy, unspecified, not intractable, without status epilepticus; F41.9 Anxiety disorder, unspecified; F32.9 Major depressive disorder, single episode, unspecified; F17.210 Nicotine dependence, cigarettes, uncomplicated; K70.10 Alcoholic hepatitis without ascites; B96.20 Unspecified Escherichia coli [E. coli] as the cause of diseases classified elsewhere; F15.10 Other stimulant abuse, uncomplicated; Z59.0 Homelessness
CPT/HCPCS: G0378; J1650; J2060; Q9967

== ENCOUNTER 2020-12-03 19:02 | Emergency (ER) | payer SELFPAY ==
[~2020-12-03] VITALS: Ht 157.5 cm; Wt 71.0 kg
[~2020-12-03 19:02] MED LIST changes: +AMLODIPINE BESYL5 MG PO; +DICYCLOMINE HCL10 MG PO
[2020-12-03 19:34] LABS: HEMOGLOBIN 14.9 g/dl (12.0-16.0); IMMATURE GRANULOCYTES 0.1 % (0.0-5.0); MEAN CELL VOLUME 102.7 fL CALC (80.0-100.0); MEAN CORPUSCULAR HGB CONC 33.1 g/dL CAL (32.0-36.0); NEUT# 5.29 thou/uL (2.00-7.15); RED BLOOD COUNT 4.38 mill/uL (4.20-5.60); RED CELL DISTRI WIDTH 12.3 % (11.5-15.5)
[2020-12-03 19:53] LABS: ALKALINE PHOSPHATASE 93 u/l (38-126); BILIRUBIN, TOTAL 0.2 mg/dL (0.0-1.4); BUN 15 mg/dL (7-17); BUN/CREATININE RATIO 23 (12-20 (CALC)); CHLORIDE 107 mmol/l (95-108); CREATININE 0.7 mg/dL (0.5-1.0); GFR > 60 ML/MIN (>=60 (CALC)); GFR FOR AFR.AMER. > 60 ML/MIN (>=60 (CALC)); MAGNESIUM 2.2 mg/dL (1.6-2.3); POTASSIUM 4.4 mmol/l (3.5-5.1); SGOT/AST 57 u/l (14-36); SODIUM 141 mmol/l (137-146)
[2020-12-03 19:56] LABS: ALBUMIN 4.7 g/dL (3.2-5.0); ANION GAP 19 (6-22 (CALC)); CARBON DIOXIDE 19 mmol/l (22-30)
[2020-12-03 20:19] LABS: URINE BILIRUBIN - DIPSTICK NEGATIVE (NEGATIVE); URINE BLOOD DIPSTICK NEGATIVE (NEGATIVE); URINE COLOR YELLOW; URINE GLUCOSE - DIPSTICK NEGATIVE (NEGATIVE); URINE KETONE NEGATIVE (NEGATIVE); URINE LEUK ESTERASE NEGATIVE (NEGATIVE); URINE PH 5.5 (4.5-8.0); URINE PROTEIN - DIPSTICK NEGATIVE (NEG-TRACE); URINE UROBILINOGEN - DIPSTICK 0.2 E.U./dL (0.2)
[2020-12-03 20:23] LABS: URINE NITRITE - DIPSTICK NEGATIVE (Negative)
[2020-12-03 22:08] VITALS: BP 120/72
== END 2020-12-03 22:11 | disposition designated cancer center or children's hospital (05) | DRG 605 ==
LOC: ED 19:02
PROVIDERS: Family Medicine
DX: S51.812A Laceration without foreign body of left forearm, initial encounter (principal); F10.129 Alcohol abuse with intoxication, unspecified; F15.10 Other stimulant abuse, uncomplicated; F32.9 Major depressive disorder, single episode, unspecified; F41.9 Anxiety disorder, unspecified; G40.909 Epilepsy, unspecified, not intractable, without status epilepticus; I10 Essential (primary) hypertension; F17.200 Nicotine dependence, unspecified, uncomplicated; X78.1XXA Intentional self-harm by knife, initial encounter; Y92.009 Unspecified place in unspecified non-institutional (private) residence as the place of occurrence of the external cause
CPT/HCPCS: S0166

== ENCOUNTER 2021-04-06 07:21 | Emergency (ER) | payer BC ==
[~2021-04-06] VITALS: Ht 157.5 cm; Wt 70.0 kg
[2021-04-06 07:53] LABS: HEMATOCRIT 44.5 % (37.0-47.0); HEMOGLOBIN 14.5 g/dl (12.0-16.0); IMMATURE GRANULOCYTES 0.1 % (0.0-5.0); MEAN CELL VOLUME 106.7 fL CALC (80.0-100.0); MEAN CORPUSCULAR HGB 34.8 pG CALC (26.0-32.0); MEAN CORPUSCULAR HGB CONC 32.6 g/dL CAL (32.0-36.0); NEUT# 4.58 thou/uL (2.00-7.15); RED BLOOD COUNT 4.17 mill/uL (4.20-5.60); RED CELL DISTRI WIDTH 13.2 % (11.5-15.5)
[2021-04-06 08:09] LABS: ACT PARTIAL THROMBO TIME 22.1 SECONDS (20.0-32.5); PROTHROMBIN TIME 10.1 SECONDS (9.0-12.5)
[2021-04-06 08:10] LABS: ALBUMIN 4.4 g/dL (3.2-5.0); ALKALINE PHOSPHATASE 150 u/l (38-126); ANION GAP 14 (6-22 (CALC)); BILIRUBIN, TOTAL 0.8 mg/dL (0.0-1.4); BUN 16 mg/dL (7-17); BUN/CREATININE RATIO 22 (12-20 (CALC)); CARBON DIOXIDE 27 mmol/l (22-30); CHLORIDE 104 mmol/l (95-108); CREATININE 0.8 mg/dL (0.5-1.0); ETHYL ALCOHOL 0 mg/dl (0-30); GFR > 60 ML/MIN (>=60 (CALC)); GFR FOR AFR.AMER. > 60 ML/MIN (>=60 (CALC)); LIPASE 68 u/l (23-300); POTASSIUM 3.5 mmol/l (3.5-5.1); SGOT/AST 57 u/l (14-36); SODIUM 141 mmol/l (137-146); TOTAL PROTEIN 8.7 g/dL (6.3-8.2)
[2021-04-06] MEDS ORDERED: LISINOPRIL XX (08:11)
[2021-04-06] MEDS ORDERED: XANAX0.5 MG PO (08:12)
[2021-04-06] MEDS ORDERED: GABAPENTIN100 MG PO (08:13)
[2021-04-06] MEDS ORDERED: SEROQUEL100 MG PO (08:13)
[2021-04-06 08:51] LABS: URINE BILIRUBIN - DIPSTICK NEGATIVE (NEGATIVE); URINE BLOOD DIPSTICK NEGATIVE (NEGATIVE); URINE GLUCOSE - DIPSTICK NEGATIVE (NEGATIVE); URINE KETONE NEGATIVE (NEGATIVE); URINE LEUK ESTERASE TRACE (NEGATIVE); URINE PROTEIN - DIPSTICK NEGATIVE (NEG-TRACE); URINE SPECIFIC GRAVITY 1.025; URINE UROBILINOGEN - DIPSTICK 0.2 E.U./dL (0.2)
[2021-04-06 08:53] LABS: URINE BACTERIA MANY hpf; URINE COLOR DK. YELLOW; URINE EPITHELIAL CELLS MANY EPI/hpf (0-FEW); URINE NITRITE - DIPSTICK POSITIVE (Negative)
[2021-04-06] MEDS ORDERED: COZAAR50 MG PO (09:12)
[2021-04-06] MEDS ORDERED: AMLODIPINE BESYL5 MG PO (09:12)
[2021-04-06] MEDS ORDERED: XANAX0.25 MG PO (09:13)
[2021-04-06] MEDS ORDERED: PROTONIX40 MG PO (09:13)
[2021-04-06 09:18] VITALS: BP 159/96
[2021-04-06] MEDS ORDERED: BACTRIM DS1 TAB PO (09:36)
== END 2021-04-06 09:30 | disposition left against medical advice (07) | DRG 313 ==
LOC: ED 07:21
DX: R07.9 Chest pain, unspecified (principal); F10.239 Alcohol dependence with withdrawal, unspecified; N39.0 Urinary tract infection, site not specified; F15.10 Other stimulant abuse, uncomplicated; T46.5X6A Underdosing of other antihypertensive drugs, initial encounter; I10 Essential (primary) hypertension; F41.9 Anxiety disorder, unspecified; F32.9 Major depressive disorder, single episode, unspecified; G40.909 Epilepsy, unspecified, not intractable, without status epilepticus; F17.200 Nicotine dependence, unspecified, uncomplicated; B96.20 Unspecified Escherichia coli [E. coli] as the cause of diseases classified elsewhere; Y90.0 Blood alcohol level of less than 20 mg/100 ml; Z91.19 Patient's noncompliance with other medical treatment and regimen; Z91.128 Patient's intentional underdosing of medication regimen for other reason; Z20.822 Contact with and (suspected) exposure to COVID-19
CPT/HCPCS: S0164